=== PATIENT | female | born 1955 | race Caucasian/White ===

== ENCOUNTER 2024-03-15 10:57 | Outpatient (AMB) | payer MEDICARE, SELFPAY ==
--- OUTSIDE RECORDS SUMMARY | 2024-03-15 10:59 | XMS_ITS | Continuity of Care Document ---
Author Organization [facility] Brayan lt Address [address] [place] [address]- Care Team Providers Care Wire Fence Builder Name Role Phone Aleksandr Estrada MD Primary Care Physician [phone] [place] [facility] [place] Date(s): 05/11/20 - 06/10/20 [facility] Adult [address] [place] [address]- [facility] Attending Physician: Heather Figueroa Admitting Physician: Heather Figueroa Referring Physician: AdmHeather martin Allergies, Adverse Reactions, Alerts Substance Reaction Severity Status morphine Active Immunizations Given and Recorded Vaccine Date Status Refusal Reason influenza virus vaccine, inactivated 1 07/19/17 Gi josette influenza virus vaccine, inactivated 2 08/03/15 Re corded influenza virus vaccine, inactivated 3 07/09/12 Gi josette tetanus/diphtheria/pertussis, acel(Tdap) 12/17/15 Given pneumococcal 23-valent vaccine 4 07/09/12 Given Not Given Vaccine Date Status Refusal Reason Influenza Virus Vaccine (oldterm) 08/09/19 Not Giv en Patient Refuses 1Admin Note: Work 2Result Comment: [12/17/2015] at work at [employer] 3Early/Late Reason: Other: 4Early/Late Reason: Other: Medications amLODIPine 5 mg oral tablet 5 mg, 1, tablet, By Mouth, Daily, # 30 tablet, Refills 11, Tot. Refills 11, Maintenance, 08/09/19 11:29:04 EST, Route to Pharmacy Electronically, [id number], [facility]/pharmacy #[id number] Start Date: 08/09/19 Status: Ordered aspirin 81 mg oral enteric coated tablet By Mouth, Daily, 0 Refills, EC Tablet Start Date: 07/09/12 Status: Ordered buPROPion 300 mg/24 hours (XL) oral tablet, extended release TAKE 1 TABLET BY MOUTH EVERY DAY DIRECTED Start Date: 08/09/19 Status: Ordered Centrum Silver By Mouth, Daily, 0 Refills, Maintenance, 12/25/17 14:41:40 Start Date: 12/25/17 Status: Ordered clindamycin 1% topical gel 1 application, Topically, Daily at bedtime, apply a thin film to affected area after washing, # 30 Gm, 11 Refills, Maintenance, 08/09/19 11:29:55 EST, Gel, 1 application Topically Daily at bedtime,Instr:apply a thin film to affected area after washing Start Date: 08/09/19 Status: Ordered Donut foam pillow Donut foam pillow, See Instructions, # 1 each, Refills 0, Tot. Refills 0, Maintenance, DX: Coccyx pain M53.3, 12/27/18 15:10:50 EDT, Compound Start Date: 12/27/18 Status: Ordered methylphenidate 54 mg oral tablet, extended release TAKE 1 TABLET BY MOUTH EVERY DAY IN THE MORNING Start Date: 05/01/20 Status: Ordered Vitamin D3 By Mouth, 0 Refills, Maintenance, 12/25/17 14:41:25 Start Date: 12/25/17 Status: Ordered Problem List Condition Effective Dates Status Health Status Inform ant Arthritis of carpometacarpal (CMC) joints of both thumbs(Confirmed) Active Attention deficit disorder(Confirmed) Active Obesity (BMI 30-39.9)(Confirmed) Active GERD (gastroesophageal reflu x disease)(Confirmed) Active Anxiety, generalized(Confirmed) Active Long-term use of amphetamines(Confirmed) Active Headache(Confirmed) Active Hypertension(Confirmed) Active Major depressive disorder, r ecurrent episode, moderate(Confirmed) Active Acne rosacea(Confirmed) Active Social History Social History Type Response Smoking Status Former smoker entered on: 08/03/18 Sex
--- OUTSIDE RECORDS SUMMARY | 2024-03-15 10:59 | XMS_ITS | Continuity of Care Document ---
Author Organization [facility] Brayan lt Address [address] [place] [address]- Care Team Providers Care Life Enrichment Specialist Name Role Phone Sean SCOTT, Aleksandr Rivera Primary Care Physician [place] [facility] [place] 05[place]/20 [facility] Adult [address] [place] [address]- [facility] Allergies, Adverse Reactions, Alerts Substance Reaction Severity [...] Work 2Result Comment: [12/17/2015] at work at [employer] 3Early/Late Reason: Other: 4Early/Late Reason: Other: Medications amLODIPine 5 mg oral tablet 5 mg, 1, tablet, By Mouth, Daily, # 30 tablet, Refills 11, Tot. Refills 11, Maintenance, 08/09/19 11:29:04 EST, Route to Pharmacy Electronically, [id number], [facility]/pharmacy #[id number] Start Date: 08/09/19 Status: Ordered aspirin [...]
--- OUTSIDE RECORDS SUMMARY | 2024-03-15 10:59 | XMS_ITS | Continuity of Care Document ---
Author Organization [facility] Brayan Address [address] [place] [address]- Care Team Providers Care Resident Services Coordinator Name Role Phone Emi Gray Primary Care Physician Encounter [facility] Date(s): 04/23/23 - 05/23/23 [facility] Adult [address] [place] [address]- Allergies, Adverse Reactions, Alerts Substance Reaction Severity Status morphine Active Immunizations Given and Recorded Vaccine Date Status Refusal Reason influenza virus vaccine, inactivated 1 07/19/17 Gi josette influenza virus vaccine, inactivated 2 08/03/15 Re corded influenza virus vaccine, inactivated 3 07/09/12 Gi josette tetanus/diphtheria/pertussis, acel(Tdap) 12/17/15 Given pneumococcal 23-valent vaccine 4 07/09/12 Given 1Admin Note: Work 2Result Comment: [12/17/2015] at work at [employer] 3Early/Late Reason: Other: 4Early/Late Reason: Other: Medications amLODIPine 5 mg oral tablet 5 mg, 1, tablet, By Mouth, Daily, # 30 tablet, Refills 11, Tot. Refills 11, Maintenance, 08/09/19 11:29:04 EST, Route to Pharmacy Electronically, [id number], [facility]/pharmacy #[id number] Start Date: 08/09/19 Status: Ordered aspirin [...] after washing Start Date: 08/09/19 Status: Ordered Clonidine 0 Refills, Maintenance, 09/11/22 20:49:00 EST, Partial fill upon patient request if the prescription is for a schedule II opioid drug. Start Date: 09/11/22 Status: Ordered Donut foam pillow Donut foam pillow, See Instructions, # 1 each, Refills 0, Tot. Refills 0, Maintenance, DX: Coccyx pain M53.3, 12/27/18 15:10:50 EDT, Compound Start Date: 12/27/18 Status: Ordered famotidine 20 mg oral tablet 20 mg, 1, tablet, By Mouth, Daily, # 60 tablet, Refills 0, Maintenance, 09/11/22 20:49:00 EST, Partial fill upon patient request if the prescription is for a schedule II opioid drug. Start Date: 09/11/22 Status: Ordered methylphenidate 54 mg oral tablet, extended release TAKE 1 TABLET BY MOUTH EVERY DAY IN THE MORNING Start Date: 05/01/20 Status: Ordered Vitamin D3 By Mouth, 0 Refills, Maintenance, 12/25/17 14:41:25 Start Date: 12/25/17 Status: Ordered Problem List Condition Confirmation Course Effective Dates Status H ealth Status Informant Arthritis of carpometacarpal (CMC) joints of both thumbs Confirmed Active Attention deficit disorder Confirmed Active Obesity (BMI 30-39.9) Confirmed Active GERD (gastroesophageal reflux disease) Confirmed Active Anxiety, generalized Confirmed Active Long-term use of amphetamines Confirmed Active Headache Confirmed Active Hypertension Confirmed Active Obese class II Confirmed Active Major depressive disorder, recurrent episode, moderate Confirmed Active Acne rosacea Confirmed Active Social History Social History Type Response Smoking Status Former smoker entered on: 08/03/18 Sex Patient Care team information Care Team Personnel Name: Emi Gray Position: S PCO Associate Professional Member Role: PCP Address: Address: [address] [place] [address]- Care Team Related Persons Name: PHAN STANTON Name: MARU STANTON Address: home [address] [place] [address] Name: ROGERIO STANTON
--- OUTSIDE RECORDS SUMMARY | 2024-03-15 10:59 | XMS_ITS | Continuity of Care Document ---
Author Organization [facility] Brayan lt Address [address] [place] [address]- Care Team Providers Care Drilling Field Professional Name Role Phone Aleksandr Estrada MD Primary Care Physician Encounter [facility] [place] Date(s): 05/01/20 - 05/08/20 [facility] Adult [address] [place] [address]- [facility] Encounter Diagnosis Vertigo(Discharge Diagnosis) - 05/01/20 Major depressive disorder, recurrent episode, moderate(Discharge Diagnosis) - 05/01/20 Attending Physician: Not on Staff, Attending MD Allergies, Adverse Reactions, Alerts Substance Reaction Severity [...] Work 2Result Comment: [12/17/2015] at work at [employer] 3Early/Late Reason: Other: 4Early/Late Reason: Other: Medications amLODIPine 5 mg oral tablet 5 mg, 1, tablet, By Mouth, Daily, # 30 tablet, Refills 11, Tot. Refills 11, Maintenance, 08/09/19 11:29:04 EST, Route to Pharmacy Electronically, [id number], [facility]/pharmacy #[id number] Start Date: 08/09/19 Status: [...] EDT, Compound Start Date: 12/27/18 Status: Ordered meclizine 12.5 mg oral tablet 1 tablet = 12.5 mg, By Mouth, 3 times a day, PRN for dizziness, # 30 tablet, 0 Refills, Acute 05/15/20 14:26:00 EDT, 05/01/20 14:25:00 EDT, Tablet, [facility]/pharmacy #[id number], 161, cm, 05/01/20 13:52:00 EDT,Height Start Date: 05/01/20 Stop Date: 05/15/20 Status: Ordered methylphenidate 54 mg oral tablet, [...] ecurrent episode, moderate(Confirmed) Active Acne rosacea(Confirmed) Active Diagnosis Diagnosis Type Effective Dates Health Status Clinical Service Informant Vertigo Discharge Diagnosis 05/01/20 Major depressive disorder, recurrent episode, moderate Discharge Diagnosis 05/01/20 Vital Signs Most recent to oldest [Reference Range]: 1 Height 161.0 cm (05/01/20 1:52 PM) Weight 95.6 kg (05/01/20 1:52 PM) Oxygen Saturation [94-100 %] 98 % (05/01/20 1:52 PM) Pulse Rate [55-90 bpm] 100 bpm *H* (05/01/20 1:52 PM) Body Mass Index [18.5-24.99] 36.88 *>HHI* (05/01/20 1:52 PM) Blood Pressure [90-138/55-84 mm Hg] 130/ 60mm Hg (05/01/20 1:52 PM) Respiratory Rate [16-30 br/min] 20 br/mi n (05/01/20 1:52 PM) Temperature [96.8-100.4 DegF] 98.2 DegF (05/01/20 1:52 PM) Mode of Delivery (Oxygen) Room air (05/01/20 1:52 PM) Blood pressure sites Arm, right (05/01/20 1:52 PM) Temperature Route Oral (05/01/20 1:52 PM) Weight Obtained Via Standing scale (05/01/20 1:52 PM) Social History Social History Type Response Smoking Status Former smoker entered on: 08/03/18 Sex
--- OUTSIDE RECORDS SUMMARY | 2024-03-15 10:59 | XMS_ITS | Continuity of Care Document ---
Author Organization [facility] Brayan Address [address] [place] [address]- Care Team Providers Care Welder/Fitter Name Role Phone Sean SCOTT, Aleksandr Rivera Primary Care Physician Encounter [facility] Date(s): 09/18/21 - 10/18/21 [facility] Adult [address] [place] [address]- Allergies, Adverse Reactions, Alerts Substance Reaction Severity [...] Work 2Result Comment: [12/17/2015] at work at [employer] 3Early/Late Reason: Other: 4Early/Late Reason: Other: Medications amLODIPine 5 mg oral tablet 5 mg, 1, tablet, By Mouth, Daily, # 30 tablet, Refills 11, Tot. Refills 11, Maintenance, 08/09/19 11:29:04 EST, Route to Pharmacy Electronically, [id number], [facility]/pharmacy #[id number] Start Date: 08/09/19 Status: [...]
--- OUTSIDE RECORDS SUMMARY | 2024-03-15 10:59 | XMS_ITS | Continuity of Care Document ---
Author Organization [facility] Brayan Address [address] [place] [address]- Care Team Providers Care Hotel Yardperson Name Role Phone Aleksandr Estrada MD Primary Care Physician Encounter [facility] [place] Date(s): 12/30/19 - 01/09/20 [facility] Adult [address] [place] [address]- [facility] Attending Physician: Heather Figueroa Admitting Physician: Heather Figueroa Referring Physician: Heather Figueroa Allergies, Adverse Reactions, Alerts Substance Reaction Severity [...] Work 2Result Comment: [12/17/2015] at work at [employer] 3Early/Late Reason: Other: 4Early/Late Reason: Other: Medications amLODIPine 5 mg oral tablet 5 mg, 1, tablet, By Mouth, Daily, # 30 tablet, Refills 11, Tot. Refills 11, Maintenance, 08/09/19 11:29:04 EST, Route to Pharmacy Electronically, [id number], [facility]/pharmacy #[id number] Start Date: 08/09/19 Status: Ordered aspirin [...] after washing Start Date: 08/09/19 Status: Ordered Concerta 36 mg oral tablet, extended release TAKE 1 TABLET BY MOUTH EVERY DAY IN THE MORNING Start Date: 08/09/19 Status: Ordered Donut foam pillow Donut foam pillow, See Instructions, # 1 each, Refills 0, Tot. Refills 0, Maintenance, DX: Coccyx pain M53.3, 12/27/18 15:10:50 EDT, Compound Start Date: 12/27/18 Status: Ordered valacyclovir 1 gm oral tablet 1 tablet = 1 Gm, By Mouth, 3 times a day, for 14 days, # 42 tablet, 0 Refills, Acute 01/13/20 10:22:00 EDT, 12/30/19 10:22:00 EDT, Tablet, [facility]/pharmacy #[id number], 161, cm, 08/09/19 11:03:00 EST, Height Start Date: 12/30/19 Stop Date: 01/13/20 Status: Ordered Vitamin D3 By Mouth, 0 [...]
--- OUTSIDE RECORDS SUMMARY | 2024-03-15 10:59 | XMS_ITS | Continuity of Care Document ---
Author Organization [facility] Brayan lt Address [address] [place] [address]- Care Team Providers Care Punchboard Filling Machine Operator Name Role Phone Sean SCOTT, Aleksandr Rivera Primary Care Physician [place] [facility] [place]s): 05/15/20 - 06/14/20 [facility] Adult [address] [place] [address]- [facility] Allergies, Adverse Reactions, Alerts Substance Reaction [...] Work 2Result Comment: [12/17/2015] at work at [employer] 3Early/Late Reason: Other: 4Early/Late Reason: Other: Medications amLODIPine 5 mg oral tablet 5 mg, 1, tablet, By Mouth, Daily, # 30 tablet, Refills 11, Tot. Refills 11, Maintenance, 08/09/19 11:29:04 EST, Route to Pharmacy Electronically, [id number], [facility]/pharmacy #[id number] Start Date: 08/09/19 Status: Ordered [...]
--- OUTSIDE RECORDS SUMMARY | 2024-03-15 10:59 | XMS_ITS | Continuity of Care Document ---
Author Organization [facility] Brayan lt Address [address] [place] [address]- Care Team Providers Care Cuff Matcher Name Role Phone Aleksandr Estrada MD Primary Care Physician Encounter [facility] [place] Date(s): 05/11/20 - 05/18/20 [facility] Adult [address] [place] [address]- [facility] Encounter Diagnosis Vertigo(Discharge Diagnosis) - 05/11/20 Attending Physician: Yared GAS BURNER OPERATORKatiana Allergies, Adverse Reactions, Alerts Substance Reaction Severity [...] Work 2Result Comment: [12/17/2015] at work at [employer] 3Early/Late Reason: Other: 4Early/Late Reason: Other: Medications amLODIPine 5 mg oral tablet 5 mg, 1, tablet, By Mouth, Daily, # 30 tablet, Refills 11, Tot. Refills 11, Maintenance, 08/09/19 11:29:04 EST, Route to Pharmacy Electronically, [id number], [facility]/pharmacy #0373 Start Date: 08/09/19 Status: Ordered aspirin [...] Diagnosis Diagnosis Type Effective Dates Health Status Clini mainor Service Informant Vertigo Discharge Diagnosis 05/11/20 Vital Signs Most recent to oldest [Reference Range]: 1 Height 161.0 cm (05/11/20 7:13 AM) Social History Social History Type Response Smoking Status Former smoker entered on: 08/03/18 Sex
--- OUTSIDE RECORDS SUMMARY | 2024-03-15 10:59 | XMS_ITS | Continuity of Care Document ---
Author Organization [facility] Brayan Address [address] [place] [address]- Care Team Providers Care Technical Training Specialist Name Role Phone Aleksandr Estrada MD Primary Care Physician [place] [facility] [place] 12/30/19 - 01/06/20 [facility] Adult [address] [place] [address]- [facility] Encounter Diagnosis Varicella zoster(Discharge Diagnosis) - 12/30/19 Attending Physician: Aleksandr Estrada MD Allergies, Adverse Reactions, Alerts Substance Reaction [...] Work 2Result Comment: [12/17/2015] at work at [employer] 3Early/Late Reason: Other: 4Early/Late Reason: Other: Medications amLODIPine 5 mg oral tablet 5 mg, 1, tablet, By Mouth, Daily, # 30 tablet, Refills 11, Tot. Refills 11, Maintenance, 08/09/19 11:29:04 EST, Route to Pharmacy Electronically, [id number], [facility]/pharmacy #[id number] Start Date: 08/09/19 Status: Ordered [...] 01/13/20 10:22:00 EDT, 12/30/19 10:22:00 EDT, Tablet, [facility]/pharmacy #[id number], 161, cm, 08/09/19 11:03:00 EST, Height [...] Diagnosis Diagnosis Type Effective Dates Health Status Cl inical Service Informant Varicella zoster Discharge Diagnosis 12/30/19 Social History Social History Type Response Smoking Status Former smoker entered on: 08/03/18 Sex
--- NOTE | 2024-03-15 11:01 | AM.OFFWIN_ITS ---
Intake Vital Signs 03/15/24 11:02 Height 5 ft 2 in Weight 220 lb BMI 40.2 BP 120/70 Blood Pressure Location Lt brachial Position Sitting Pulse 91 Pulse Source Pulse Oximeter Temp 97.6 F Temp Source Temporal Artery Scan Pulse Oximetry (%) 96 Oxygen Delivery Method Room Air Intake Visit Reasons: DISABILITY SPECIALIST ?shingles Intake Note: pt is here today for shingles started 2 days ago Patient Tobacco Use Status: Never used Tobacco Allergies morphine [MORPHINE] Allergy (Unknown, Unverified 03/15/24 11:04) shakes violently Do you need a note to return to daycare/school/sports/work: No HPI HPI Comments History of Present Illness Details This is a 69-year-old female with a past medical history of hypertension, depression and anxiety presenting for evaluation of a shingles outbreak. The patient does state however that she has had episodes of chest pain that resolved with aspirin, her last episode of chest pain was on Thursday. Patient states that she started having a burning sensation on the left side of her face yesterday that extends to her scalp. Patient states that she has had shingles before and this feels similar. Patient has not taken any medication for treatment of this burning sensation. Patient denies having any chest pain or shortness for breath at this time. Patient states that she does not have a primary care provider of record at this time and is waiting for an intake at [facility]. [facility] Social History Patient Tobacco Use Status: Never used Tobacco Review of Systems Const All systems reviewed & are unremarkable except as noted in HPI and below Eyes Reports no additional complaints ENT Details: Burning sensation left side of face Reports no additional complaints Card Reports chest pain (not currently), Denies diaphoresis, Denies syncope and Denies dyspnea Resp Reports no additional complaints, Denies cough and Denies dyspnea GI Reports no additional complaints, Denies nausea and Denies vomiting Musc Reports no additional complaints Skin/Breast Reports system reviewed and no additional complaints, except as documented Neuro Reports no additional complaints and Denies syncope Psych Reports anxiety, Reports depression, Denies homicidal ideation and Denies suicidal ideation Endo Reports no additional complaints Physical Exam Vital Signs: Last Vital Signs Temp 97.6 F 03/15/24 11:02 Pulse 91 03/15/24 11:02 BP 120/70 03/15/24 11:02 Pulse Ox 96 03/15/24 11:02 Oxygen Delivery Method Room Air 03/15/24 11:02 BMI result Body Mass Index 40.2 Const General: cooperative, comfortable, no acute distress, alert, awake and anxious; No diaphoretic Nutritional Appearance: overweight Orientation/consciousness: patient oriented x3 Limitations: no limitations HEENT Head: Yes normal to inspection and Yes normocephalic Ears: hearing grossly normal bilaterally, external ears normal and TM's normal bilaterally General nose exam: Normal external nose present Eyes Other: No conjunctival lesions are noted bilaterally General: appearance normal, both eyes and all related structures Visual [place]: normal visual [place] by confrontation Alignment and Position: alignment normal Eyelids: Yes eyelids normal Conjunctivae: conjunctivae normal Sclerae: sclerae normal Corneas: corneas normal Resp Auscultation: clear to auscultation bilaterally, no wheezes and lung sounds not diminished Cardio Rate: regular rate Rhythm: regular rhythm Heart sounds: no murmurs and no rubs Skin Lesions: lesion noted (grouped erythematous papules on the left side of face/scalp in dermatomal) papule left face Wounds: no wounds Neuro General: patient oriented x3 Psych Appearance: grossly normal Mental Status: mental status grossly normal Insight: Good insight present (Psych) Judgement: Good judgement present (Psych) Assessment & Plan Assessment & Plan (1) Herpes zoster: Code(s): B02.9 - Zoster without complications Qualifiers: Herpes zoster complications: without complications Qualified Code(s): B02.9 - Zoster without complications Plan: Valtrex 1 g t.i.d. times 10 days; ibuprofen p.r.n. discomfort. (2) History of chest pain: Comment: Patient denies having any chest pain at this time. Reviewed history of chest pain that is relieved with aspirin. EKG deferred. Code(s): Z87.898 - Personal history of other specified conditions Plan: Patient advised to go to the emergency department immediately for further cardiac evaluation and management. Medications: New valacyclovir (Valtrex) 1,000 mg PO TID 30 tabs 0RF Coding Level of Care Code New Pt Level 3 (48231) Diagnoses Herpes zoster without complication B02.9 Herpes zoster complications: without complications History of chest pain Z87.898 Time Spent (min) 20
[2024-03-15 11:02] VITALS: BP 120/70; PULSE 91; TEMP 36.4; O2SAT 96; BMI 40.2
== END 2024-03-15 12:04 | disposition home or self-care (01) ==
PROVIDERS: PCP Family Medicine; Visit Provider Physician Assistant
DX: B02.9 Zoster without complications (principal); Z87.898 Personal history of other specified conditions
CPT/HCPCS: 99203

== ENCOUNTER 2024-04-04 08:30 | Outpatient (AMB) | payer MEDICARE, SELFPAY ==
[2024-04-04 08:56] VITALS: BP 130/70; PULSE 89; TEMP 36.7; O2SAT 97; BMI 40.2
--- NOTE | 2024-04-04 08:56 | AM.OFFWIN_ITS ---
Intake Vital Signs 04/04/24 08:56 Height 5 ft 2 in Weight 220 lb BMI 40.2 BP 130/70 Blood Pressure Location Rt brachial Position Sitting Pulse 89 Pulse Source Pulse Oximeter Temp 98.0 F Temp Source Oral Pulse Oximetry (%) 97 Oxygen Delivery Method Room Air Intake Visit Reasons: EP ?UTI Intake Note: pt is here for possible uti Patient Tobacco Use Status: Never used Tobacco Allergies morphine [MORPHINE] Allergy (Unknown, Verified 04/04/24 08:57) shakes violently Do you need a note to return to daycare/school/sports/work: No HPI HPI Comments History of Present Illness Details Patient is a 69-year-old female complaining of a couple of days of increased urgency frequency but states when she goes to urinate just a little bit comes out. She denies burning with urination, fevers or history of kidney stones or blood in her urine [facility] Social History Patient Tobacco Use Status: Never used Tobacco Review of Systems Const All systems reviewed & are unremarkable except as noted in HPI and below Physical Exam Vital Signs: Last Vital Signs Temp 98.0 F 04/04/24 08:56 Pulse 89 04/04/24 08:56 BP 130/70 04/04/24 08:56 Pulse Ox 97 04/04/24 08:56 Oxygen Delivery Method Room Air 04/04/24 08:56 BMI result Body Mass Index 40.2 Const General: cooperative, healthy appearing, comfortable, no acute distress and well developed Orientation/consciousness: patient oriented x3 Limitations: no limitations HEENT Head: Yes normal to inspection Eyes General: appearance normal, both eyes and all related structures Neck Neck: Yes normal visual inspection and Yes full ROM Resp Effort & Inspection: normal respiratory effort and able to speak in complete sentences General: Yes bladder normal to palpation and Yes no CVA tenderness Bimanual exam- vagina & uterus: bladder normal to palpation Back/Spine/Pelvis Back: no CVA tenderness Skin General skin exam: no rashes or lesions noted Neuro General: patient oriented x3 Extrem General: Yes normal to inspection Assessment & Plan Assessment & Plan (1) Urinary tract infection: Code(s): N39.0 - Urinary tract infection, site not specified Qualifiers: Urinary tract infection type: acute cystitis Hematuria presence: without hematuria Qualified Code(s): N30.00 - Acute cystitis without hematuria Plan: sent rx to pharmacy Plan see above Medications: New cefuroxime axetil 500 mg PO Q12H 10 tabs 0RF Coding Level of Care Code New Pt Level 3 (38133) Diagnoses Acute cystitis without hematuria N30.00 Urinary tract infection type: acute cystitis Hematuria presence: without hematuria
== END 2024-04-04 09:31 | disposition home or self-care (01) ==
PROVIDERS: PCP Family Medicine; Visit Provider Physician Assistant
DX: N30.00 Acute cystitis without hematuria (principal)
CPT/HCPCS: 81003; 99203

== ENCOUNTER 2025-01-25 08:39 | Outpatient (REF) | payer OTHER, SELFPAY ==
--- OUTSIDE RECORDS SUMMARY | 2025-01-25 11:50 | XMS_ITS | Clinical Summary ---
Author Organization [facility] [address] [facility] Address [address] [facility] [place] [address] Phone Care Team Providers Care Industrial Painter Name Role Phone Mara Dallas MD Primary Care Provider [phone] Allergies Active Allergy Reactions Criticality Noted Date [...] CKD (chronic kidney disease) , stage III ([facility] V24, [facility] V28) 11/04/2020 Asymptomatic varicose veins of both lower extrem ities 10/08/2020 Obesity (BMI 30-39.9) 10/08/2020 Decreased GFR 10/08/2020 Hypertension 07/16/2020 Attention deficit disorder 07/16/2020 Anxiety disorder 07/16/2020 Encounters Date Type Department Care Team Description 11/18/2024 7:30 AM EST Office Visit Adult Medicine [address] [phone] Mara Dallas MD Primary hypertension (Primary Dx); Recurrent major depressive disorder, in full remission ([facility] V24); Stage 3a chronic kidney disease ([facility] V24, [facility] V28); Prediabetes; Posterior vitreous degeneration, right from [...] 1:00 PM EDT Office Visit Adult Medicine [address] [phone] Mara Dallas MD [address] [place] [address] 03/24/2025 3:00 PM EDT Office Visit Adult Medicine [address] [phone] Mara Dallas MD [address] [place] [address] Health Maintenance Due Date Last Done Comments [...] mmol/L LAB CHEMISTRY METHOD 10/13/2024 4:40 PM [facility] Potassium 4.4 3.5 - 5.5 mmol/L LAB CHEMISTRY METHOD 10/13/2024 4:40 PM [facility] Chloride 107 96 - 110 mmol/L LAB CHEMISTRY METHOD 10/13/2024 4:40 PM [facility] CO2 27 21 - 32 mmol/L LAB CHEMISTRY METHOD 10/13/2024 4:40 PM [facility] Anion Gap 4 3 - 11 LAB CHEMISTRY METHOD 10/13/2024 4:40 PM [facility] Glucose 109(H) 70 - 100 mg/dL LAB CHEMISTRY METHOD 10/13/2024 4:40 PM [facility] BUN 17 5 - 25 mg/dL LAB CHEMISTRY METHOD 10/13/2024 4:40 PM [facility] Creatinine 1.19(H) 0.50 - 1.10 mg/dL LAB CHEMISTRY METHOD 10/13/2024 4:40 PM [facility] eGFR 50(L) >=60 mL/min/1. 73m2 LAB CHEMISTRY METHOD 10/13/2024 4:40 PM [facility] Comment:Calculation based on the??Chronic Kidney Disease Epidemiology Collaboration (CKD-EPI) equation refit??without adjustment for race. BUN/Creatinine Ratio 14.3 LAB CHEMISTRY METHOD 10/13/2024 4:40 PM [facility] Calcium 9.4 8.5 - 10.5 mg/dL LAB CHEMISTRY METHOD 10/13/2024 4:40 PM [facility] Blood Venous blood specimen / Unknown Venipuncture / Unknown 10/13/2024 3:49 PM EST 10/13/2024 4:15 PM EST Loki B Alfred SCOTT LAB BLOOD ORDERABLES Final Resu lt [facility] ([facility] [address] [place] [address], * (ABNORMAL) Lipid panel (06/09/2024) LDL/HDL Ratio [...] - [place] [employer] Care Teams Industrial Painter Relationship Specialty Start Date End Date Mara Dallas MD [address] [place] [phone] PCP - General Internal Medicine 10/12/24
== END 2025-01-25 08:40 | disposition home or self-care (01) ==
LOC: HO.LNP 08:39
PROVIDERS: PCP Family Medicine; Visit Provider Physician Assistant
DX: N30.00 Acute cystitis without hematuria (principal)
CPT/HCPCS: 81003; 87086

== ENCOUNTER 2025-01-25 08:39 | Outpatient (AMB) | payer OTHER, SELFPAY ==
--- NOTE | 2025-01-25 08:39 | AM.OFFWIN_ITS ---
Intake Vital Signs 01/25/25 08:47 Weight 221 lb BP 124/78 Blood Pressure Location Lt brachial Position Sitting Pulse 90 Pulse Source Pulse Oximeter Temp 98.2 F Temp Source Oral Pulse Oximetry (%) 98 Oxygen Delivery Method Room Air Intake Visit Reasons: EP Bladder infection? Intake Note: Patient here for lower back pain and burning sensation that has been present for a couple of weeks. Patient Tobacco Use Status: Never used Tobacco Allergies morphine [MORPHINE] Allergy (Unknown, Verified 01/25/25 08:47) shakes violently HPI HPI Comments History of Present Illness Details Patient is a 69yo F who presents to the office with concern of a bladder infection Admits to back pain and dysuria She states backache was a few weeks ago and resolved States symptoms started again yesterday + dysuria, frequency or urgency She noticed hematuria slightly on toilet paper last night. + constipation, last BM was Thursday. Sh joellen is still having flatulence Hx of 4 c-sections, appendectomy and cholecystectomy + chills without documented fever Took tylenol 4am; last dose She admits to abdominal pressure and sharp pains intermittently PFSH Social History Patient Tobacco Use Status: Never used Tobacco Review of Systems Const Reports chills and Denies fever(s) Card Denies chest pain Resp Denies cough GI Reports abdominal pain, Reports change in stool character, Reports constipation, Denies diarrhea, Denies nausea and Denies vomiting Reports hematuria (on toilet paper last night), Reports difficulty voiding, Reports dysuria, Denies urinary incontinence, Reports urinary hesitancy and Reports urinary urgency Musc Reports back pain (previously but none currently; last episode 3 weeks ago) Skin/Breast Denies rash Physical Exam Vital Signs: Last Vital Signs Temp 98.2 F 01/25/25 08:47 Pulse 90 01/25/25 08:47 BP 124/78 01/25/25 08:47 Pulse Ox 98 01/25/25 08:47 Oxygen Delivery Method Room Air 01/25/25 08:47 General: Non-toxic, NAD. Speaking full sentences. Skin: Warm dry throughout Eye: EOMI Respiratory: CTA bilaterally. No wheezes, rales or rhonchi Cardiac: RRR. No murmur ABdominal: BS present x 4. No rebound or guarding. Minimal umbillical ttp. No CVAT bilaterally. MSK: Full ROM extremities. Neurology: Alert. No aphasia or facial droop. Gait without abnormality Psych: Good mood and affect Assessment & Plan Assessment & Plan (1) Urinary tract infection: Code(s): N39.0 - Urinary tract infection, site not specified Qualifiers: Urinary tract infection type: acute cystitis Hematuria presence: without hematuria Qualified Code(s): N30.00 - Acute cystitis without hematuria Plan: Patient seen and evaluated. U/A: + leukos. Negative nitrates culture sent Keflex with food Miralax OTC for constipation; discussed staying hydrated with medicine Patient gave verbal understanding and had no additional questions or concerns at time of discharge All questions answered Orders: Orders Urine Culture Today N30.00 - Acute cystitis without hematuria Medications: New cephalexin 500 mg PO BID 14 caps 0RF Coding Level of Care Code Est Pt Level 3 (46371) Diagnoses Acute cystitis without hematuria N30.00 Urinary tract infection type: acute cystitis Hematuria presence: without hematuria
[2025-01-25 08:47] VITALS: BP 124/78; PULSE 90; TEMP 36.8; O2SAT 98
--- OUTSIDE RECORDS SUMMARY | 2025-01-25 09:03 | XMS_ITS | Clinical Summary ---
Author Organization [facility] [address] [facility] Address [address] [facility] [place] [address] Phone Care Team Providers Care Hand Twister Name Role Phone Mara Dallas MD Primary Care Provider [phone] Allergies Active Allergy Reactions Criticality Noted Date Comments Morphine 07/16/2020 seizures Medications cholecalciferol (VITAMIN D-3) 250 mcg (10,000 unit) capsule Take by mouth. Active magnesium gluconate (MAGONATE) 27.5 mg magne- sium (500 mg) tablet Take 1 tablet (27.5 mg total) by mouth 1 (one) time each day. Active famotidine (PEPCID) 20 mg tablet TAKE 1 TABLET BY MOUTH TWICE A DAY 180 tablet 1 10/04/2024 Active cloNIDine (CATAPRES) 0.1 mg tablet TAKE 1 TABLET BY MOUTH TWICE A DAY 180 tablet 1 10/04/2024 Active buPROPion XL (WELLBUTRIN XL) 300 mg 24 hr tablet Take 1 tablet (300 mg total) by mouth 1 (one) time each day in the morning. 90 tablet 1 10/06/2024 Active amLODIPine (NORVASC) 10 mg tablet Take 1 tablet (10 mg total) by mouth 1 (one) time each day. 90 each 1 11/18/2024 08/13/202 5 Active Active Problems Problem Noted Date Diagnosed Date Posterior vitreous degeneration, right 5 Prediabetes 11/18/2024 Depression 06/08/2024 CKD (chronic kidney disease) , stage III ([facility] V24, [facility] V28) 11/04/2020 Asymptomatic varicose veins of both lower extrem ities 10/08/2020 Obesity (BMI 30-39.9) 10/08/2020 Decreased GFR 10/08/2020 Hypertension 07/16/2020 Attention deficit disorder 07/16/2020 Anxiety disorder 07/16/2020 Encounters Date Type Department Care Team Description 11/18/2024 7:30 AM EST Office Visit Adult Medicine [address] [phone] Mara Dallas MD Primary hypertension (Primary Dx); Recurrent major depressive disorder, in full remission ([facility] V24); Stage 3a chronic kidney disease ([facility] V24, [facility] V28); Prediabetes; Posterior vitreous degeneration, right from Last 3 Months Immunizations Name Administration Dates Next Due Influenza trivalent, 0.5mL (Fluad) 65yo and olde r 06/08/2024 Influenza trivalent, 0.5mL ( Fluzone High-dose) 65yo and older 06/08/2024 Pneumococcal polysaccharide 23 valent (Pneumovax 23) 2yo and older 07/09/2012 Tdap Tetanus diptheria acell ular pertussis (Boostrix; Adacel) 7yo and older 12/17/2015 Surgical History Surgery Date Site/Laterality Comments APPENDECTOMY PROCEDURE: HISTORICAL APPENDECTOMY TONSILLECTOMY PROCEDURE: HISTORICAL TONSILLECTOMY CHOLECYSTECTOMY PROCEDURE: HISTORICAL CHOLECYSTECTOMY OTHER SURGICAL HISTORY PROCEDURE: ---- OTHER ----; COMMENT: c section x4 BUNIONECTOMY Right PROCEDURE: BUNION SURGERY, SIMPLE REMOVAL Medical History Medical History Date Comments Essential (primary) hypertension DX:Essential (primary) hypertension Anxiety disorder DX:Anxiety diso rder Depression DX:Depression Family History Medical History Relation Name Comments COPD Brother tobacco No Known Problems Father Diabetes Mother Heart failure Mother Cervical cancer Paternal Grandmother COPD Sister 1 Hypertension Sister 2 Hypertension Sister 3 No Known Problems Son 1 Asthma Son 2 No Known Problems Son 3 No Known Problems Son 4 Relation Name Status Comments Brother Daughter Father Mother Paternal Grandmother Sister 1 Alive Sister 2 Alive Sister 3 Alive Son 1 Alive Son 2 Alive Son 3 Alive Son 4 Alive Social History Tobacco Use Types Packs/Day Years Used Date Smoking Tobacco: Former Cigarettes Q uit: 07/16/2003 Smokeless Tobacco: Never Tobacco Cessation:Counseling Given: Not Answered Alcohol Use Standard Drinks/Week Comments Yes 0 (1 standard drink = 0.6 oz pur e alcohol) Comments No Sex and Gender Information Value Date Recorded Sex Assigned at Female 09/21/2024 11:24 AM EST Legal Sex Female 2:17 AM EST Gender Identity Not on file Sexual Orientation Not on file Obstetrics History Last Filed Vital Signs Vital Sign Reading Time Taken Comments Blood Pressure 144/72 11/18/2024 7:26 AM EST Pulse 81 10/14/2024 7:47 AM EST Temperature 36.4 ??C (97.5 ??F) 11/18/2024 7:26 AM ES T Respiratory Rate 14 11/18/2024 7:26 AM EST Oxygen Saturation 97% 10/14/2024 7:47 AM EST Inhaled Oxygen Concentration - - Weight 103 kg (228 lb) 11/18/2024 7:26 AM EST Height 157.5 cm (5' 2 ) 11/18/2024 7:26 AM EST Body Mass Index 41.7 11/18/2024 7:26 AM EST Plan of Treatment Upcoming Encounters Date Type Department Care Team (Late st Contact Info) Description 02/16/2025 1:00 PM EDT Office Visit Adult Medicine [address] [phone] Mara Dallas MD [address] [place] [address] 03/24/2025 3:00 PM EDT Office Visit Adult Medicine [address] [phone] Mara Dallas MD [address] [place] [address] Health Maintenance Due Date Last Done Comments Breast Cancer Screening 1955 Zoster Vaccines (1 of 2) 2007 Pneumococcal Vaccine: 50+ Years (2 of 2 - PCV) 07/09/2013 07/09/2012 RSV Immunization Adult Patients (1 - Risk 60-74 years 1-dose series) 2017 Colorectal Cancer Screening: Colonoscopy 05/03/2024 Depression Screening 05/03/2024 Falls Risk Assessment 05/03/2024 Hepatitis C Screening 05/03/2024 Medicare Annual Wellness Visit 05/03/2024 Osteoporosis Screening (Bone Density Screening) 05/03/2024 Social Influencers of Health Screening 05/03/2024 COVID-19 Vaccine ( season) 2024 04/28/2022, 10/06/2021, 01/22/2021, Additional history exists Hypertension/CHF/CAD Annual BMP Blood Test 10/13/2025 10/13/2024, 06/09/2024, 06/09/2024 DTaP,Tdap,and Td Vaccines (2 - Td or Tdap) 12/16/2025 12/17/2015 Cholesterol Screening (Lipid Panel) 06/09/2029 06/09/2024, 06/09/2024 Influenza Vaccine Completed 06/08/2024, , 07/13/2017 HIB Vaccines Aged Out No longer eligi ble based on patient's age to complete this topic HPV Vaccines Aged Out No longer eligi ble based on patient's age to complete this topic Hepatitis A Vaccines Aged Out No long er eligible based on patient's age to complete this topic Hepatitis B Vaccines Aged Out No long er eligible based on patient's age to complete this topic IPV Vaccines Aged Out No longer eligi ble based on patient's age to complete this topic MMR Vaccines Aged Out No longer eligi ble based on patient's age to complete this topic Meningococcal ACWY Vaccine Aged Out N o longer eligible based on patient's age to complete this topic Meningococcal B Vaccine Aged Out No l onger eligible based on patient's age to complete this topic RSV Immunization Patients Under 20 months Aged Out No longer eligible based on patient's age to complete this topic Varicella Vaccines Aged Out No longer eligible based on patient's age to complete this topic Procedures Procedure Name Priority Date/Time Associated Diagnosis Comments BASIC METABOLIC PANEL STAT 10/13/2024 3:49 PM EST LIPID PANEL Routine 06/09/2024 from Last 3 Months or Most Recently Relevant to Health Maintenance Results * (ABNORMAL) Basic metabolic panel (10/13/2024 3:49 PM EST) Sodium 138 133 - 145 mmol/L LAB CHEMISTRY METHOD 10/13/2024 4:40 PM [facility] Potassium 4.4 3.5 - 5.5 mmol/L LAB CHEMISTRY METHOD 10/13/2024 4:40 PM [facility] Chloride 107 96 - 110 mmol/L LAB CHEMISTRY METHOD 10/13/2024 4:40 PM [facility] CO2 27 21 - 32 mmol/L LAB CHEMISTRY METHOD 10/13/2024 4:40 PM [facility] Anion Gap 4 3 - 11 LAB CHEMISTRY METHOD 10/13/2024 4:40 PM [facility] Glucose 109(H) 70 - 100 mg/dL LAB CHEMISTRY METHOD 10/13/2024 4:40 PM [facility] BUN 17 5 - 25 mg/dL LAB CHEMISTRY METHOD 10/13/2024 4:40 PM [facility] Creatinine 1.19(H) 0.50 - 1.10 mg/dL LAB CHEMISTRY METHOD 10/13/2024 4:40 PM [facility] eGFR 50(L) >=60 mL/min/1. 73m2 LAB CHEMISTRY METHOD 10/13/2024 4:40 PM [facility] Comment:Calculation based on the??Chronic Kidney Disease Epidemiology Collaboration (CKD-EPI) equation refit??without adjustment for race. BUN/Creatinine Ratio 14.3 LAB CHEMISTRY METHOD 10/13/2024 4:40 PM [facility] Calcium 9.4 8.5 - 10.5 mg/dL LAB CHEMISTRY METHOD 10/13/2024 4:40 PM [facility] Blood Venous blood specimen / Unknown Venipuncture / Unknown 10/13/2024 3:49 PM EST 10/13/2024 4:15 PM EST Loki B Alfred SCOTT LAB BLOOD ORDERABLES Final Resu lt [facility] [address] [place] [address], * (ABNORMAL) Lipid panel (06/09/2024) LDL/HDL Ratio 4 0 - 4 Triglycerides 91 0 - 150 mg/dL Cholesterol 187 0 - 200 mg/dL HDL 54 >=40 mg/dL LDL Cholesterol 115(A) 0 - 100 mg/dL Blood Venous blood specimen / Unknown Historical Provider LAB BLOOD ORDERABLES Li l Result from Last 3 Months or Most Recently Relevant to Health Maintenance Insurance [place] [employer] Care Teams Hand Twister Relationship Specialty Start Date End Date Mara Dallas MD [address] [place] [id number] PCP - General Internal Medicine 10/12/24
== END 2025-01-25 09:24 | disposition home or self-care (01) ==
PROVIDERS: PCP Family Medicine; Visit Provider Physician Assistant
DX: N30.00 Acute cystitis without hematuria (principal); Z13.9 Encounter for screening, unspecified

== ENCOUNTER 2025-03-13 10:14 | Outpatient (AMB) | payer OTHER, MEDICAID, SELFPAY ==
--- NOTE | 2025-03-13 10:19 | AM.OFFWIN_ITS ---
Intake Vital Signs 03/13/25 10:29 Height 5 ft 2 in Weight 227 lb BMI 41.5 BP 134/68 Blood Pressure Location Lt brachial Position Sitting Pulse 86 Pulse Source Pulse Oximeter Temp 98.2 F Temp Source Oral Pulse Oximetry (%) 95 Oxygen Delivery Method Room Air Intake Visit Reasons: EP-lt eye swollen/itchy Intake Note: . Pt has itchy swollen Lt eye: ? due to shingles x2days ago: Eye test exam OD 20/20, OS 20/50, OU 20/25 corrective lens Patient Tobacco Use Status: Never used Tobacco Ag Equipment Field Service Technician Required: No Allergies morphine [MORPHINE] Allergy (Unknown, Verified 03/13/25 10:31) shakes violently HPI HPI Comments History of Present Illness Details History of Present Illness - The patient is a 70-year-old female pr esenting with an itchy, irritated eye. - Symptoms began the previous morning, i ncluding itchy eyelids but no internal ocular involvement. - The patient has experienced previous e pisodes of Herpes Zoster involving the periorbital area, approximately five times, with initial involvement occurring on her back at age 13. - Currently, no blisters are present, th ough this onset is typical for her condition. - She reports the application of cool co mpresses alleviates some itching, and she is avoiding scratching to prevent potential blistering. - The patient denied any associated feve r or objective signs of a cold and has utilized Visine for symptom relief in the past, seeking further treatment specifically for itching management. - She denies fever or chills. She denies ULLOA, visual changes, discharge, crusting, redness to the eye, cold symptoms, ULLOA, dizziness, CP, SOB, abd pain, n/v/d. Physical Exam General: Cooperative, healthy appearing, comfortable, no acute distress and well developed Orientation: Patient oriented x3 Head: Normal to inspection Ears: Hearing grossly normal bilaterally Nose: Normal external nose present Eyes: slight redness noted around the left eye on the upper and lower eyelid, no tearing or crusting, no signs of pink eye Neck: Normal visual inspection and Yes full ROM Respiratory: Normal respiratory effort and able to speak in complete sentences. Clear to auscultation bilaterally Cardiovascular: Regular rate and rhythm. Normal S1 and S2 Skin: No rashes or lesions noted on the face. Patient was informed and verbally consented to the use of an ambient scribe for clinic note documentation during this visit. [facility] Social History Patient Tobacco Use Status: Never used Tobacco Review of Systems Const All systems reviewed & are unremarkable except as noted in HPI and below Physical Exam Vital Signs: Last Vital Signs Temp 98.2 F 03/13/25 10:29 Pulse 86 03/13/25 10:29 BP 134/68 03/13/25 10:29 Pulse Ox 95 03/13/25 10:29 Oxygen Delivery Method Room Air 03/13/25 10:29 BMI result Body Mass Index 41.5 Assessment & Plan Assessment & Plan (1) Itch of eye, left: Code(s): H57.9 - Unspecified disorder of eye and adnexa Plan Most likely allergies vs conjunctivitis vs allergic reaction vs herpes zoster Plan - Prescribe Valacyclovir for a seven-day course to address potential Herpes Zoster Ophthalmicus recurrence. - Prescribe eye drops to manage itching and prevent worsened symptoms due to scratching. - Advise the continuation of applying cool compresses; emphasize avoiding scratching. - Monitor symptom progression and consider follow-up for worsening or changes. Medications: New olopatadine 0.7% (Pataday Once Daily Relief) 1 drp ophthalmic (eye) Q24H PRN 5 mL 0RF itching valacyclovir 1,000 mg PO q12h 7 days 14 tabs 0RF Coding Level of Care Code Est Pt Level 3 (46397) Diagnoses Itch of eye, left H57.9
[2025-03-13 10:29] VITALS: BP 134/68; PULSE 86; TEMP 36.8; O2SAT 95; BMI 41.5
--- OUTSIDE RECORDS SUMMARY | 2025-03-13 11:22 | XMS_ITS | Clinical Summary ---
Author Organization [facility] [address] [facility] Address [address] [facility] [place] [address] Phone Care Team Providers Care Relay Associate Name Role Phone Mara Dallas MD Primary Care Provider [phone] Allergies Active Allergy Reactions Criticality Noted Date Comments Morphine 07/16/2020 seizures Medications cholecalciferol (VITAMIN D-3) 250 mcg (10,000 unit) capsule Take by mouth. A ctive magnesium gluconate (MAGONATE) 27.5 mg magne- sium (500 mg) tablet Take 1 tablet (27.5 mg total) by mouth 1 (one) time each day. Active famotidine (PEPCID) 20 mg tablet TAKE 1 TABLET BY MOUTH TWICE A DAY 180 tablet 1 4 Active cloNIDine (CATAPRES) 0.1 mg tablet TAKE 1 TABLET BY MOUTH TWICE A DAY 180 tablet 1 4 Active buPROPion XL (WELLBUTRIN XL) 300 mg 24 hr tablet Take 1 tablet (300 mg total) by mouth 1 (one) time each day in the morning. 90 tablet 1 5 Active amLODIPine (NORVASC) 10 mg tablet Take 1 tablet (10 mg total) by mouth 1 (one) time each day. 90 each 1 02/14/05/17/20 25 Active diclofenac (VOLTAREN) 1 % topical gel Apply 2 g topically 2 (two) times a day. 200 g 5 Active Active Problems Problem Noted Date Diagnosed Date Posterior vitreous degeneration, right 5 Prediabetes 11/18/2024 Depression 06/08/2024 CKD (chronic kidney disease) , stage III ([facility] V24, [facility] V28) 11/04/2020 Asymptomatic varicose veins of both lower extrem ities 10/08/2020 Obesity (BMI 30-39.9) 10/08/2020 Decreased GFR 10/08/2020 Hypertension 07/16/2020 Attention deficit disorder 07/16/2020 Anxiety disorder 07/16/2020 Encounters Date Type Department Care Team Description 02/20/2025 Telephone Adult [address] [phone] Elisha Bal MA Call back 02/16/2025 1:26 PM EDT - 02/16/2025 11:59 PM EDT Hospital Encounter [address] [phone] Pain of right heel Discharge Disposition: Home or Self Care 02/16/2025 1:00 PM EDT Office Visit Adult [address] [phone] Mara Dallas MD Pain of right heel (Primary Dx); Varicose veins of both lower extremities with pain; Screening for malignant neoplasm of skin; Calcaneal spur of right foot from Last 3 Months Immunizations Name Administration [...] Sex Female 2:17 AM EST Gender Identity Female 02/20/2025 9:49 AM EDT Sexual Orientation Straight 02/20/2025 9: 49 AM EDT Obstetrics History Last Filed Vital Signs Vital Sign Reading Time Taken Comments Blood Pressure 132/62 02/16/2025 1:01 PM EDT Pulse 76 02/16/2025 1:01 PM EDT Temperature 36.4 ??C (97.5 ??F) 02/16/2025 1:01 PM ED T Respiratory Rate 14 02/16/2025 1:01 PM EDT Oxygen Saturation 98% 02/16/2025 1:01 PM EDT Inhaled Oxygen Concentration - - Weight 102 kg (224 lb) 02/16/2025 1:01 PM EDT Height 154.9 cm (5' 1 ) 02/16/2025 1:01 PM EDT Body Mass Index 42.32 02/16/2025 1:01 PM EDT Plan of Treatment Upcoming Encounters Date Type Department Care Team (Late st Contact Info) Description 03/24/2025 3:00 PM EDT Office Visit Adult Medicine [address] [place] [address] Mara Dallas MD [address] [place] [address] 05/11/2025 9:15 AM EDT Office Visit Orthopedic Surgery - [place] [address] [phone] [place], DPLoki [address] [address] Health Maintenance Due Date Last Done Comments Breast Cancer Screening 1955 Zoster Vaccines (1 of 2) 2007 Pneumococcal Vaccine: 50+ Years (2 of 2 - PCV) 07/09/2013 07/09/2012 RSV Immunization Adult Patients (1 - Risk 60-74 years 1-dose series) 2017 Colorectal Cancer Screening: Colonoscopy 05/03/2024 Falls Risk Assessment 05/03/2024 Hepatitis C Screening 05/03/2024 Medicare Annual Wellness Visit 05/03/2024 Osteoporosis Screening (Bone Density Screening) 05/03/2024 Social Influencers of Health Screening 05/03/2024 COVID-19 Vaccine ( season) 2024 04/28/2022, 10/06/2021, 01/22/2021, Additional history exists Hypertension/CHF/CAD Annual BMP Blood Test 10/13/2025 10/13/2024, 06/09/2024, 06/09/2024 DTaP,Tdap,and Td Vaccines (2 - Td or Tdap) 12/16/2025 12/17/2015 Depression Screening 02/09/2026 02/09/2025 Cholesterol Screening (Lipid Panel) 06/09/2029 06/09/2024, 06/09/2024 [...] Procedure Name Priority Date/Time Associated Diagnosis Comments XR FOOT 3+ VIEWS RIGHT Routine 02/16/2025 1:41 PM EDT Pain of right heel BASIC METABOLIC PANEL STAT 10/13/2024 3:49 PM EST LIPID PANEL Routine 06/09/2024 from Last 3 Months or Most Recently Relevant to Health Maintenance Results * XR Foot 3+ Views Right (02/16/2025 1:41 PM EDT) Anatomical Region Laterality Modality Lower Extremities, Foot Right [facility] 02/16/2025 7:33 PM EDT Impressions 02/16/2025 7:37 PM EDT No acute fracture or dislocation of the right foot. Small calcaneal spur. -------- FINAL REPORT -------- Dictated By: Bharat Jose Dictated Date: 02/16/2025 19:33 ET Assigned Physician: Bharat Jose Reviewed and Electronically Signed By: Bharat Jose Signed Date: 02/16/2025 19:37 ET Workstation ID: [id number] Transcribed By: Self Edit Transcribed Date: 02/16/2025 19:33 ET Narrative 02/16/2025 7:37 PM EDT HISTORY: Right heel pain evaluate bone spur TECHNIQUE: 3 views radiographs of the right foot COMPARISON: None FINDINGS: ?? The foot demonstrates normal mineralization with no fracture or malalignment. ??The visualized articulations are normal. ??Orthopedic hardware is present within the 1st metatarsal. ??Small calcaneal spur. ??No significant soft tissue swelling is identified. Procedure Note Bharat Jose MD - 02/16/2025 HISTORY: Right heel pain evaluate bone spur TECHNIQUE: 3 views radiographs of the right foot COMPARISON: None FINDINGS: The foot demonstrates normal mineralization with no fracture ormalalignment. The visualized articulations are normal. Orthopedichardware is present within the 1st metatarsal. Small calcaneal spur. Nosignificant soft tissue swelling is identified. IMPRESSION: No acute fracture or dislocation of the right foot. Small calcaneal spur. -------- FINAL REPORT -------- Dictated By: Bharat Jose Dictated Date: 02/16/2025 19:33 ET Assigned Physician: Bharat Jose Reviewed and Electronically Signed By: Bharat Jose Signed Date: 02/16/2025 19:37 ET Workstation ID: [id number] Transcribed By: Self Edit Transcribed Date: 02/16/2025 19:33 ET us Mara Dallas MD IMG XR PROCEDURES Final Result * (ABNORMAL) Basic metabolic panel (10/13/2024 3:49 PM EST) Sodium 138 133 - 145 mmol/L LAB CHEMISTRY METHOD 10/13/2024 4:40 PM [facility] Potassium 4.4 3.5 - 5.5 mmol/L LAB CHEMISTRY METHOD 10/13/2024 4:[address] [facility] Chloride 107 96 - 110 mmol/L LAB CHEMISTRY METHOD 10/13/2024 4:40 PM [facility] CO2 27 21 - 32 mmol/L LAB CHEMISTRY METHOD 10/13/2024 4:40 PM [facility] Anion Gap 4 3 - 11 LAB CHEMISTRY METHOD 10/13/2024 4:40 PM [facility] Glucose 109(H) 70 - 100 mg/dL LAB CHEMISTRY METHOD 10/13/2024 4:[address] [facility] BUN 17 5 - 25 mg/dL LAB CHEMISTRY METHOD 10/13/2024 4:40 PM [facility] Creatinine 1.19(H) 0.50 - 1.10 mg/dL LAB CHEMISTRY METHOD 10/13/2024 4:40 PM [facility] eGFR 50(L) >=60 mL/min/1. 73m2 LAB CHEMISTRY METHOD 10/13/2024 4:40 PM [facility] Comment:Calculation based on the??Chronic Kidney Disease Epidemiology Collaboration (CKD-EPI) equation refit??without adjustment for race. BUN/Creatinine Ratio 14.3 LAB CHEMISTRY METHOD 10/13/2024 4:40 PM [facility] Calcium 9.4 8.5 - 10.5 mg/dL LAB CHEMISTRY METHOD 10/13/2024 4:40 PM [facility] Blood Venous blood specimen / Unknown Venipuncture / Unknown 10/13/2024 3:49 PM EST 10/13/2024 4:15 PM EST Loki Simon MD LAB BLOOD ORDERABLES Final Resu lt [facility] [address] [place] [address], * (ABNORMAL) Lipid panel (06/09/2024) LDL/HDL Ratio 4 0 - 4 Triglycerides 91 0 - 150 mg/dL Cholesterol 187 0 - 200 mg/dL HDL 54 >=40 mg/dL LDL Cholesterol 115(A) 0 - 100 mg/dL Blood Venous blood specimen / Unknown us Julien Sanchez MD LAB BLOOD ORDERABLES Li l Result from Last 3 Months or Most Recently Relevant to Health Maintenance Insurance MEDICA[place] [employer] [employer] Care Teams Relay Associate Relationship Specialty Start Date End Date Mara Dallas MD [address] [place] [address] [phone] PCP - General Internal Medicine 10/12/24
== END 2025-03-13 11:32 | disposition home or self-care (01) ==
PROVIDERS: PCP Family Medicine; Visit Provider Physician Assistant Medical
DX: H57.9 Unspecified disorder of eye and adnexa (principal)

== ENCOUNTER → 2025-03-13 10:14 | Outpatient (BNVA) | payer OTHER, MEDICAID, SELFPAY | PROVIDERS: PCP Family Medicine; Visit Provider Physician Assistant Medical | DX: Z13.89 Encounter for screening for other disorder (principal) ==

== ENCOUNTER 2025-05-22 14:14 | Outpatient (REF) | payer OTHER, MEDICAID, SELFPAY ==
[2025-05-22 17:21] LABS: Resp Syncy Virus RNA Qual PCR NEGATIVE (Negative); SARS COV2 PCR INHOUSE NEGATIVE (Negative)
== END 2025-05-22 14:15 | disposition home or self-care (01) ==
LOC: HO.LNP 14:14
PROVIDERS: PCP Internal Medicine; Visit Provider Physician Assistant Medical
DX: H92.02 Otalgia, left ear (principal); J02.9 Acute pharyngitis, unspecified; R09.89 Other specified symptoms and signs involving the circulatory and respiratory systems
CPT/HCPCS: 87637

== ENCOUNTER 2025-05-22 14:14 | Outpatient (AMB) | payer OTHER, MEDICAID, SELFPAY ==
[2025-05-22 14:45] VITALS: BP 138/72; PULSE 80; TEMP 36.7; O2SAT 97; BMI 41.9
--- NOTE | 2025-05-22 14:45 | MHC.OFFWIV ---
Intake Vital Signs 05/22/25 14:45 Height 5 ft 2 in Weight 229 lb BMI 41.9 BP 138/72 Blood Pressure Location Rt brachial Position Sitting Pulse 80 Pulse Source Pulse Oximeter Temp 98.0 F Temp Source Oral Pulse Oximetry (%) 97 Oxygen Delivery Method Room Air Intake Visit Reasons: EP-?ears & throat infection Patient Tobacco Use Status: Never used Tobacco [employer] Required: No Is last menstrual period known: No Post menopausal: Yes Patient : No Allergies morphine (MORPHINE) Allergy (Unknown, Verified 05/22/25 14:52) shakes violently Do you need a note to return to daycare/school/sports/work: No HPI HPI Comments History of Present Illness Details History - The patient is a 70-year-old female presenting with ear pain and possible ear or throat infection. - The left ear pain began around Thursday, with associated gland discomfort. - Reports headache without fever, and cough without runny nose or congestion. - No history of swimming or water exposure, and no ear discharge noted. - Uses Tylenol for pain and Ricola for cough relief, with no history of asthma or COPD, but family history of COPD. - She has been eating and drinking well at home. - She denies fever, chills, CP, SOB, abd pain, n/v/d. Physical Exam General: Cooperative, healthy appearing, comfortable and no acute distress Orientation/consciousness: Patient oriented x3 Limitations: No limitations Head: Normal to inspection Ears: Hearing grossly normal bilaterally, external ears normal and TM's normal bilaterally Nose: Normal external nose present, normal nares present, and no nasal discharge present. Face and sinus: Sinuses nontender to palpation. Mouth: Normal oral and palatal mucosa present and moist mucous membranes noted. Throat: Tonsils normal. Uvula is midline. Posterior oropharynx with slight erythema and no exudates. Eyes: Appearance normal, both eyes and all related structures Neck: Normal visual inspection, full ROM. Lymphadenopathy noted. Respiratory: Clear to auscultation bilaterally. Normal respiratory effort, able to speak in complete sentences. No respiratory distress, not tachypneic, no tripod positioning and no use of accessory muscles. Cardiovascular: Regular rate and rhythm. Normal S1 and S2 Skin: No rashes or lesions noted Patient was informed and verbally consented to the use of an ambient scribe for clinic note documentation during this visit [facility] Social History Patient Tobacco Use Status: Never used Tobacco Patient : No Review of Systems Const All systems reviewed & are unremarkable except as noted in HPI and below Physical Exam Vital Signs: Last Vital Signs Temp 98.0 F 05/22/25 14:45 Pulse 80 05/22/25 14:45 BP 138/72 05/22/25 14:45 Pulse Ox 97 05/22/25 14:45 Oxygen Delivery Method Room Air 05/22/25 14:45 BMI result Body Mass Index 41.9 Assessment & Plan Assessment & Plan (1) Ear pain: Code(s): H92.09 - Otalgia, unspecified ear Qualifiers: Laterality: left Qualified Code(s): H92.02 - Otalgia, left ear (2) Sore throat: Code(s): J02.9 - Acute pharyngitis, unspecified Plan Most likely URI vs strep vs OM vs covid vs post nasal drip vs allergies Plan - COVID-19 test conducted due to respiratory symptoms and recent trends. - Prescribed cough medicine and an inhaler for symptom management. - Recommended home remedies like salt water gargles and lemon tea. - Continue using Tylenol for pain relief. - VSS, pt well appearing Orders: Orders AMB Rapid Strep Screen Today Z13.9 - Encounter for screening, unspecified SARS-CoV2/FLU/RSV Today R09.89 - Other specified symptoms and signs involving the circulatory and respiratory systems Medications: New benzonatate 100 mg PO bid-tid PRN 21 caps 0RF Cough 7 days albuterol sulfate 90 mcg/actuation 2 puffs inhalation Q6H PRN 8.5 grams 0RF shortness of breath or wheezing or cough Coding Level of Care Code Est Pt Level 3 (11418) Diagnoses Left ear pain H92.02 Laterality: left Sore throat J02.9
--- OUTSIDE RECORDS SUMMARY | 2025-05-22 15:00 | XMS_ITS | Clinical Summary ---
Author Organization [facility] [address] [facility] Address [address] [facility] [place] [address] Phone Care Team Providers Care [employer] Name Role Phone Mara Dallas MD Primary Care Provider [phone] Allergies Active Allergy Reactions Criticality Noted Date Comments Morphine 07/16/2020 seizures Medications cholecalcifero l (VITAMIN D-3) 250 mcg (10,000 unit) capsule Take by mouth. Active magnesium gluconate (MAGONATE) 27.5 mg magne- sium (500 mg) tablet Take 1 tablet (27.5 mg total) by mouth 1 (one) time each day. Active famotidine (PEPCID) 20 mg tablet TAKE 1 TABLET BY MOUTH TWICE A DAY 180 tablet 1 10/04/20 24 Active Pataday Once Daily Relief 0.7 % drops PLACE 1 DROP INTO THE EYE(S) EVERY 24 HOURS NEEDED FOR ITCHING 03/13/20 25 Active valACYclovir (VALTREX) 1 gram tablet Take 1 tablet (1,000 mg total) by mouth every 12 (twelve) hours. for 7 days 03/13/20 25 Active lisinopriL (PRINIVIL,ZEST RIL) 2.5 mg tablet Take 1 tablet (2.5 mg total) by mouth 1 (one) time each day. 90 each 03/24/20 25 025 Active cloNIDine (CATAPRES) 0.1 mg tablet Take 1 tablet (0.1 mg total) by mouth 1 (one) time each day. 03/24/20 25 Active buPROPion XL (WELLBUTRIN XL) 300 mg 24 hr tablet TAKE 1 TABLET BY MOUTH 1 TIME EACH DAY IN THE MORNING. 90 tablet 1 03/28/20 25 Active amLODIPine (NORVASC) 10 mg tablet TAKE 1 TABLET BY MOUTH 1 TIME EACH DAY. 90 tablet 1 05/16/20 25 Active diclofenac (VOLTAREN) 1 % topical gel APPLY 2 G TOPICALLY TWICE A DAY 200 g 2 05/16/20 25 Active amLODIPine (NORVASC) 10 mg tablet Take 1 tablet (10 mg total) by mouth 1 (one) time each day. 90 each 1 11/18/19 25 025 Discontinued diclofenac (VOLTAREN) 1 % topical gel Apply 2 g topically 2 (two) times a day. 200 g 02/17/20 25 025 Discontinued Active Problems Problem Noted Date Diagnosed Date Obesity, morbid ([facility] V24, [facility] V28) 03/24 Assessment & Plan (03/24/2025 3:35 PM EDT): Posterior vitreous degeneration, right Prediabetes 11/18/2024 Depression 06/08/2024 CKD (chronic kidney disease) , stage III ([facility] V24, [facility] V28) 11/04/2020 Asymptomatic varicose veins of both lower extrem ities 10/08/2020 Obesity (BMI 30-39.9) 10/08/2020 Decreased GFR 10/08/2020 Hypertension 07/16/2020 Assessment & Plan (03/24/2025 3:35 PM EDT): Hypertension-initial blood pressure elevated, patient reports that blood pressure has been high at home as well mainly in the evening time, only has been taking clonidine in the morning and by the evening time blood pressures high in the 160s to 170s, has been compliant with amlodipine 10 mg daily. Start lisinopril 2.5 mg daily, continue with amlodipine 10 mg daily. Continue with clonidine 0.1 mg daily. Attention deficit disorder 07/16/2020 Anxiety disorder 07/16/2020 Encounters Date Type Department Care Team Description 05/11/2025 9:15 AM EDT Office Visit Orthopedic Surgery - [address] [address] Otis Hatfield DPM Arthritis of both feet (Primary Dx); Plantar fasciitis; Pes planus of both feet; Calcaneal spur of right foot; Lumbosacral radiculopathy 04/18/[address] [phone] Mara Dallas MD Labs Only (Ultrasound) 03/24/2025 3:00 PM EDT Office Visit [address] [phone] Mara Dallas MD PE (physical exam), annual (Primary Dx); Special screening for malignant neoplasms, colon; Other specified disorders of bone density and structure, other site; Screening mammogram for breast cancer; Need for vaccination against Streptococcus pneumoniae; Obesity, morbid (CMS/HCC V24, CMS/HCC V28); Primary hypertension 02/20/[address] [phone] Elisha Bal MA Call back from Last 3 Months Immunizations Name Administration Dates Next Due Influenza Quadrivalent, 0.5m l, preservative free (Fluarix; FluLaval; Fluzone) ages 6mo and older (Afluria) 3yo and older 07/13/2017 Influenza trivalent, 0.5mL (Fluad) 65yo and olde r 06/08/2024 Influenza trivalent, 0.5mL ( Fluzone High-dose) 65yo and older 06/08/2024 Pneumococcal conjugate 20 va lent (Prevnar 20, PCV 20) 2mo and older 03/24/2025 Pneumococcal polysaccharide 23 valent (Pneumovax 23) 2yo and older 07/09/2012 Tdap Tetanus diptheria acell ular pertussis (Boostrix; Adacel) 7yo and older 12/17/2015 Surgical History Surgery Date Site/Laterality Comments APPENDECTOMY PROCEDURE: HISTORICAL APPENDECTOMY TONSILLECTOMY PROCEDURE: HISTORICAL TONSILLECTOMY CHOLECYSTECTOMY PROCEDURE: HISTORICAL CHOLECYSTECTOMY OTHER SURGICAL HISTORY PROCEDURE: ---- OTHER ----; COMMENT: c section x4 BUNIONECTOMY Right PROCEDURE: BUNION SURGERY, SIMPLE REMOVAL SECTION, LOW TRANSVERSE Medical History Medical History Date Comments Essential (primary) hypertension DX:Essential (primary) hypertension Anxiety disorder DX:Anxiety diso rder Depression DX:Depression ADHD (attention deficit hype ractivity disorder) Arthritis Family History Medical History Relation Name Comments COPD Brother Heath tobacco No Known Problems Father Diabetes Mother Lida Heart failure Mother Lida Kidney disease Mother Lida Cervical cancer Paternal Grandmother Isabelle Ovarian cancer Paternal Grandmother Isabelle COPD Sister 1 Preet Hypertension Sister 2 Ciarra Hypertension Sister 3 Jody No Known Problems Son 1 Asthma Son 2 Grady No Known Problems Son 3 No Known Problems Son 4 Relation Name Status Comments Brother Heath Daughter Father Mother Lida Paternal Grandmother Isabelle Sister 1 Preet Alive Sister 2 Ciarra Alive Sister 3 Jody Alive Son 1 Alive Son 2 Grady Alive Son 3 Alive Son 4 Alive Social History Tobacco Use Types Packs/Day Years Used Date Smoking Tobacco: Former Cigarettes Q uit: 07/16/2003 Smokeless Tobacco: Never Alcohol Use Standard Drinks/Week Comments Yes 0 (1 standard drink = 0.6 oz pur e alcohol) Housing Instability Answer Date Recorde d Are you worried that in the next 2 months you may not have stable housing? No 03/19/2025 Food Access & Nutrition Answer Date Rec orded Do you have access to a vari ety of food including fruits and vegetables? Yes 03/19/2025 Access to Healthcare Answer Date Record ed Within the last 3 months, ho w many times did you visit the emergency department for your medical care? 1 03/19/2025 Health Literacy Answer Date Recorded How often do you need to hav e someone help you when you read instructions, pamphlets, or other written material from your doctor or pharmacy? Never 03/19/2025 Caregiver: How often do you need to have someone help you when you read instructions, pamphlets, or other written material from your doctor or pharmacy? Not on file 03/19/2025 Financial Risk Answer Date Recorded How hard is it for you to pa y for the very basics like food, housing, medical care, and air conditioning / heating? Not very hard 03/19/2025 Transportation Answer Date Recorded Has the lack of transportati on kept you from meetings, work, or from getting things needed for daily living? No Has the lack of transportati on kept you from medical appointments or from getting medications? No 03/19/2025 Social Isolation Answer Date Recorded How often do you feel lonely or isolated from th ose around you? Never 03/19/2025 Food Risk Answer Date Recorded Within the past 12 months we worried whether our food would run out before we got money to buy more. Never true 03/19/2025 Within the past 12 months th e food we bought just didn't last and we didn't have money to get more. Never true 03/19/2025 Dependent Care Answer Date Recorded Do you need help finding or paying for care for your loved ones. For example, early childhood aide classroom or elderly care for an older adult? No 03/19/2025 Education Answer Date Recorded Do you think completing more education or training, like finishing a GED, going to college, or learning a trade, would be helpful for you? N/A 03/19/2025 Employment and Income Answer Date Recor ded During the last four weeks, have you been actively looking for work? Patient declined 03/19/2025 Living Situation Answer Date Recorded What is your living situation? 0 03/19/2025 Comments No Sex and Gender Information Value Date Recorded Sex Assigned at Female 09/21/2024 11:24 AM EST Legal Sex Female 2:17 AM EST Gender Identity Female 02/20/2025 9:49 AM EDT Sexual Orientation Straight 02/20/2025 9: 49 AM EDT Obstetrics History Last Filed Vital Signs Vital Sign Reading Time Taken Comments Blood Pressure 138/72 03/24/2025 3:26 PM EDT Pulse 78 03/24/2025 2:58 PM EDT Temperature 36.4 C (97.5 F) 03/24/2025 2:58 PM EDT Respiratory Rate 14 03/24/2025 2:58 PM EDT Oxygen Saturation 98% 02/16/2025 1:01 PM EDT Inhaled Oxygen Concentration - - Weight 106 kg (234 lb) 03/24/2025 2:58 PM EDT Height 157.5 cm (5' 2 ) 03/24/2025 2:58 PM EDT Body Mass Index 42.8 03/24/2025 2:58 PM EDT Plan of Treatment Upcoming Encounters Date Type Department Care Team (Late st Contact Info) Description 07/06/2025 1:00 PM EDT Office Visit Adult Medicine [facility] [address] [place] [address] Mara Dallas MD [address] [place] [id number] 07/13/2025 10:00 AM EDT Office Visit Orthopedic Surgery - [place] [id number] [phone] Otis Hatfield, DPLoki [address] [phone] Health Maintenance Due Date Last Done Comments Breast Cancer Screening 1955 Zoster Vaccines (1 of 2) 02/20/1976 RSV Immunization Adult Patients (1 - Risk 60-74 years 1-dose series) 2017 Falls Risk Assessment 05/03/2024 Hepatitis C Screening 05/03/2024 Medicare Annual Wellness Visit 05/03/2024 Osteoporosis Screening (Bone Density Screening) 05/03/2024 COVID-19 Vaccine ( season) 2024 04/28/2022, 10/06/2021, 01/22/2021, Additional history exists Influenza Vaccine (#1) 2025 , 06/08/2024, 07/13/2017 DTaP,Tdap,and Td Vaccines (2 - Td or Tdap) 12/16/2025 12/17/2015 Social Influencers of Health Screening 03/19/2026 03/19/2025 Hypertension/CHF/CAD Annual BMP Blood Test 03/22/2026 03/22/2025, 10/13/2024, 06/09/2024, Additional history exists Colorectal Cancer Screening: FIT-DNA (Cologuard) 04/11/2028 04/11/2025, 04/11/2025, 04/11/2025 Cholesterol Screening (Lipid Panel) 03/22/2030 03/22/2025, 06/09/2024, 06/09/2024 Depression Screening Completed 03/24/2025 Pneumococcal Vaccine: 50+ Years Completed 03/24/2025, 07/09/2012 HIB Vaccines Aged Out No longer eligi [...] Procedure Name Priority Date/Time Associated Diagnosis Comments LAB COLOGUARD COLON CANCER SCREEN Routine 04/11/2025 6:20 PM EDT Special screening for malignant neoplasms, colon CBC WITH AUTO DIFFERENTIAL Routine 03/22/2025 8:05 AM EDT Primary hypertension COMPREHENSIVE METABOLIC PANEL Routine 03/22/2025 8:05 AM EDT Primary hypertension CBC AND DIFFERENTIAL Routine 03/22/2025 8:05 AM EDT Primary hypertension LIPID PANEL WITH REFLEX TO DIRECT LDL Routine 03/22/2025 8:05 AM EDT Primary hypertension HEMOGLOBIN A1C Routine 03/22/2025 8:05 AM EDT Prediabetes from Last 3 Months Results * Cologuard?? colon cancer screening (04/11/2025 6:20 PM EDT) COLOGUARD Negative Negative [facility] Comment: The Cologuard (TM) test was performed on this specimen. NEGATIVE TEST RESULT. A negative Cologuard result indicates a low likelihood that a colorectal cancer (CRC) or advanced adenoma (adenomatous polyps with more advanced pre-malignant features) is present. The chance that a person with a negative Cologuard test has a colorectal cancer is less than 1 in 1500 (negative predictive value >99.9%) or has an advanced adenoma is less than 5.3% (negative predictive value 94.7%). These data are based on a prospective cross-sectional study of 10,000 individuals at average risk for colorectal cancer who were screened with both Cologuard and colonoscopy. (Pippa Ahmadi al, N Engl J Med 2014;370(14):1286- 1297) The normal value (reference range) for this assay is negative. COLOGUARD RE-SCREENING RECOMMENDATION: Periodic colorectal cancer screening is an important part of preventive healthcare for asymptomatic individuals at average risk for colorectal cancer. Following a negative Cologuard result, the [place] [employer] and U.S. Multi-Society Task Force screening guidelines recommend a Cologuard re-screening interval of 3 years. References: [place] [employer] Guideline for Colorectal Cancer Screening: https://www.cancer.org/cancer/tzbgm-jcbrll-adunqz/diknbxlji-rvpuvedan-btrfrhv/ac s-rec ommendations.html.; Mynor DK, Avni CR, Debora RiveraK, Colorectal Cancer Screening: Recommendations for Physicians and Patients from the U.S. Multi-Society Task Force on Colorectal Cancer Screening , Am J Gastroenterology 2017; 112:3237-6270. TEST DESCRIPTION: Composite algorithmic analysis of stool DNA-biomarkers with hemoglobin immunoassay. Quantitative values of individual biomarkers are not reportable and are not associated with individual biomarker result reference ranges. Cologuard is intended for colorectal cancer screening of adults of either sex, 45 years or older, who are at average-risk for colorectal cancer (CRC). Cologuard has been approved for use by the U.S. FDA. The performance of Cologuard was established in a cross sectional study of average-risk adults aged 50-84. Cologuard performance in patients ages 45 to 49 years was estimated by sub-group analysis of near-age groups. Colonoscopies performed for a positive result may find as the most clinically significant lesion: colorectal cancer [4.0%], advanced adenoma (including sessile serrated polyps greater than or equal to 1cm diameter) [20%] or non- advanced adenoma [31%]; or no colorectal neoplasia [45%]. These estimates are derived from a prospective cross-sectional screening study of 10,000 individuals at average risk for colorectal cancer who were screened with both Cologuard and colonoscopy. (Pippa Ahmadi al, N Engl J Med 2014;370(14):8563-9581.) Cologuard may produce a false negative or false positive result (no colorectal cancer or precancerous polyp present at colonoscopy follow up). A negative Cologuard test result does not guarantee the absence of CRC or advanced adenoma (pre-cancer). The current Cologuard screening interval is every 3 years. ([place] [employer] and U.S. Multi-Society Task Force). Cologuard performance data in a 10,000 patient pivotal study using colonoscopy as the reference method can be accessed at the following location: www.TrackIF/results. Additional description of the Cologuard test process, warnings and precautions can be found at www.[employer]. Stool 04/11/2025 6:20 PM EDT 04/13/2025 1:08 PM EDT Mara Dallas MD LAB MOLECULAR DIAGNOSTICS ORDERA BLES Final Result [employer] [address] [place] [address] [facility] [address] [place] [address] * (ABNORMAL) Lipid panel with reflex to direct LDL (03/22/2025 8:05 AM EDT) Cholesterol 178 0 - 200 mg/dL LAB CHEMISTRY METHOD 03/22/2025 10:34 AM EDT [facility] Triglycerides 74 0 - 150 mg/dL LAB CHEMISTRY METHOD 03/22/2025 10:34 AM EDT [facility] HDL 55 >=40 mg/dL LAB CHEMISTRY METHOD 03/22/2025 10:34 AM EDT [facility] LDL Calculated 108(H) 0 - 100 mg/dL LAB CHEMISTRY METHOD 03/22/2025 10:34 AM EDT [facility] VLDL Cholesterol Jhony 14.8 mg/dL LAB CHEMISTRY METHOD 03/22/2025 10:34 AM EDT [facility] Non HDL Chol. (LDL+VLDL) 123 <145 mg/dL LAB CHEMISTRY METHOD 03/22/2025 10:34 AM EDT [facility] Chol/HDL Ratio 3.2 0.0 - 4.4 LAB CHEMISTRY METHOD 03/22/2025 10:34 AM T [facility] Blood Venous blood specimen / Unknown Venipuncture / Unknown 03/22/2025 8:05 AM EDT 03/22/2025 8:05 AM EDT us Mara Dallas MD LAB BLOOD ORDERABLES Final Resul t [facility] [address] [place] [address], * (ABNORMAL) CBC auto differential (03/22/2025 8:05 AM EDT) WBC 9.8 4.8 - 10.8 K/mcL LAB HEMETOLOGY METHOD 03/22/2025 10:11 AM EDT [facility] RBC 4.10 3.80 - 4.80 M/mcL LAB HEMETOLOGY METHOD 03/22/2025 10:11 AM EDT [facility] Hemoglobin 12.1 11.5 - 16.0 g/dL LAB HEMETOLOGY METHOD 03/22/2025 10:11 AM T [facility] Hematocrit 38.0 35.0 - 47.0 % LAB HEMETOLOGY METHOD 03/22/2025 10:11 AM [facility] MCV 93.4 79.0 - 98.0 FL LAB HEMETOLOGY METHOD 03/22/2025 10:11 AM [facility] MCH 29.7 27.0 - 32.0 pcg LAB HEMETOLOGY METHOD 03/22/2025 10:11 AM [facility] MCHC 31.8(L) 32.0 - 37.0 g/dL LAB HEMETOLOGY METHOD 03/22/2025 10:11 AM [facility] RDW 13.4 11.0 - 15.0 % LAB HEMETOLOGY METHOD 03/22/2025 10:11 AM [facility] Platelets 345 130 - 400 K/mcL LAB HEMETOLOGY METHOD 03/22/2025 10:11 AM [facility] MPV 10.3 7.0 - 11.0 FL LAB HEMETOLOGY METHOD 03/22/2025 10:11 AM [facility] NRBC 0.0 <1.0 % LAB HEMETOLOGY METHOD 03/22/2025 10:11 AM [facility] NRBC Absolute 0.00 <0.10 K/mcL LAB HEMETOLOGY METHOD 03/22/2025 10:11 AM [facility] Neutrophils Relative 58.9 % LAB HEMETOLOGY METHOD 03/22/2025 10:11 AM [facility] Lymphocytes Relative 29.3 % LAB HEMETOLOGY METHOD 03/22/2025 10:11 AM [facility] Monocytes Relative 6.3 % LAB HEMETOLOGY METHOD 03/22/2025 10:11 AM [facility] Eosinophils Relative 4.0 % LAB HEMETOLOGY METHOD 03/22/2025 10:11 AM [facility] Basophils Relative 0.7 % LAB HEMETOLOGY METHOD 03/22/2025 10:11 AM EDT [facility] Immature Granulocytes Relative 0.8 % LAB HEMETOLOGY METHOD 03/22/2025 10:11 AM EDT [facility] Neutrophils Absolute 5.75 1.50 - 7.00 K/mcL LAB HEMETOLOGY METHOD 03/22/2025 10:11 AM EDT [facility] Lymphocytes Absolute 2.86 1.00 - 5.00 K/mcL LAB HEMETOLOGY METHOD 03/22/2025 10:11 AM EDT [facility] Monocytes Absolute 0.62 0.20 - 1.00 K/mcL LAB HEMETOLOGY METHOD 03/22/2025 10:11 AM EDT [facility] Eosinophils Absolute 0.39 0.00 - 0.50 K/mcL LAB HEMETOLOGY METHOD 03/22/2025 10:11 AM EDT [facility] Basophils Absolute 0.07 0.00 - 0.20 K/mcL LAB HEMETOLOGY METHOD 03/22/2025 10:11 AM EDT [facility] Immature Granulocytes Absolute 0.08(H) 0.00 - 0.03 K/mcL LAB HEMETOLOGY METHOD 03/22/2025 10:11 AM [facility] Blood Venous blood specimen / Unknown Venipuncture / Unknown 03/22/2025 8:05 AM EDT 03/22/2025 8:05 AM EDT us Mara Dallas MD LAB BLOOD ORDERABLES Final Resul t [facility] [address] [place] [address], * Hemoglobin A1c (03/22/2025 8:05 AM EDT) Hemoglobin A1C 5.7 <6.5 % LAB CHEMISTRY METHOD 03/22/2025 12:33 PM EDT [facility] Mean Bld Glu Estim. 117 mg/dL LAB CHEMISTRY METHOD 03/22/2025 12:33 PM [facility] Blood Venous blood specimen / Unknown Venipuncture / Unknown 03/22/2025 8:05 AM EDT 03/22/2025 8:05 AM EDT us Mara Dallas MD LAB BLOOD ORDERABLES Final Resul t [facility] [address] [place] [address], [place] [phone] * (ABNORMAL) Comprehensive metabolic panel (03/22/2025 8:05 AM EDT) Sodium 138 133 - 145 mmol/L LAB CHEMISTRY METHOD 03/22/2025 10:34 AM [facility] Potassium 4.4 3.5 - 5.5 mmol/L LAB CHEMISTRY METHOD 03/22/2025 10:34 AM [facility] Chloride 105 96 - 110 mmol/L LAB CHEMISTRY METHOD 03/22/2025 10:34 AM [facility] CO2 29 21 - 32 mmol/L LAB CHEMISTRY METHOD 03/22/2025 10:34 AM [facility] Anion Gap 4 3 - 11 LAB CHEMISTRY METHOD 03/22/2025 10:34 AM [facility] Glucose 104(H) 70 - 100 mg/dL LAB CHEMISTRY METHOD 03/22/2025 10:34 AM [facility] BUN 14 5 - 25 mg/dL LAB CHEMISTRY METHOD 03/22/2025 10:34 AM [facility] Creatinine 1.04 0.50 - 1.10 mg/dL LAB CHEMISTRY METHOD 03/22/2025 10:34 AM [facility] eGFR 59(L) >=60 mL/min/1. 73m2 LAB CHEMISTRY METHOD 03/22/2025 10:34 AM [facility] Comment:Calculation based on the Chronic Kidney Disease Epidemiology Collaboration (CKD-EPI) equation refit without adjustment for race. BUN/Creatinine Ratio 13.5 LAB CHEMISTRY METHOD 03/22/2025 10:34 AM [facility] Calcium 9.4 8.5 - 10.5 mg/dL LAB CHEMISTRY METHOD 03/22/2025 10:34 AM [facility] AST (SGOT) 15 10 - 42 unit/L LAB CHEMISTRY METHOD 03/22/2025 10:34 AM [facility] ALT (SGPT) 26 10 - 60 unit/L LAB CHEMISTRY METHOD 03/22/2025 10:34 AM [facility] Alkaline Phosphatase 70 42 - 121 unit/L LAB CHEMISTRY METHOD 03/22/2025 10:34 AM [facility] Total Protein 7.1 6.0 - 8.0 g/dL LAB CHEMISTRY METHOD 03/22/2025 10:34 AM [facility] Albumin 3.9 3.2 - 5.0 g/dL LAB CHEMISTRY METHOD 03/22/2025 10:34 AM [facility] Total Bilirubin 0.5 0.0 - 1.4 mg/dL LAB CHEMISTRY METHOD 03/22/2025 10:34 AM [facility] Blood Venous blood specimen / Unknown Venipuncture / Unknown 03/22/2025 8:05 AM EDT 03/22/2025 8:05 AM EDT us Mara Dallas MD LAB BLOOD ORDERABLES Final Resul t [facility] [address] [place] [address], from Last 3 Months Insurance MEDICAID - [place] MEDIC[place] ADVANTAGE [facility] Care Teams [employer] Relationship Specialty Start Date End Date Mara Dallas MD [address] [place] [phone] PCP - General Internal Medicine 10/12/24
--- OUTSIDE RECORDS SUMMARY | 2025-05-22 15:00 | XMS_ITS ---
Author Name [facility] Organization Unknown Care Team Organization Name Specialty Phone Email Start Date End mariia [facility] JENNIFFER REYNA Primary Care 05/18/2025
== END 2025-05-22 15:28 | disposition home or self-care (01) ==
PROVIDERS: PCP Internal Medicine; Visit Provider Physician Assistant Medical
DX: H92.02 Otalgia, left ear (principal); J02.9 Acute pharyngitis, unspecified

== ENCOUNTER 2025-07-10 08:19 | Outpatient (REF) | payer MEDICARE, MEDICAID, SELFPAY ==
--- OUTSIDE RECORDS SUMMARY | 2025-07-06 13:15 | XMS_ITS | Encounter Summary ---
Author Organization [facility] Address [address] [place] [address] Care Team Providers Care Marketing Services Coordinator Name Role Phone Mara Reyna MD Primary Care Provider [phone] Reason for Visit * Reason Comments Follow-up Encounter Details Date Type Department Care Team (Late st Contact Info) Description 07/06/2025 1:15 PM EDT Office Visit Adult Medicine [address] [phone] Mara Reyna MD [address] [place] [address] Primary hypertension (Primary Dx); Recurrent major depressive disorder, in full remission (CMS/HCC V24); Prediabetes; Primary osteoarthritis of right knee; Need for prophylactic vaccination and inoculation against influenza Social History Tobacco Use Types Packs/Day Years [...] care for your loved ones. For example, child and family therapist or elderly care for an older adult? [...] Date Recorded What is your living situation? Unrecognized valu e 03/19/2025 Comments No Sex and Gender Information Value Date Recorded Sex Assigned at Female 09/21/2024 11:24 AM EST Legal Sex Female 2:17 AM EST Gender Identity Female 02/20/2025 9:49 AM EDT Sexual Orientation Straight 02/20/2025 9: 49 AM EDT documented as of this encounter Last Filed Vital Signs Vital Sign Reading Time Taken Comments Blood Pressure 102/60 07/06/2025 1:05 PM EDT Pulse 70 07/06/2025 1:05 PM EDT Temperature 36.4 C (97.5 F) 07/06/2025 1:05 PM EDT Respiratory Rate 14 07/06/2025 1:05 PM EDT Oxygen Saturation 97% 07/06/2025 1:05 PM EDT Inhaled Oxygen Concentration - - Weight 105 kg (231 lb) 07/06/2025 1:05 PM EDT Height 154.9 cm (5' 1 ) 07/06/2025 1:05 PM EDT Body Mass Index 43.65 07/06/2025 1:05 PM EDT documented in this encounter Functional Status * Are you deaf or do you have serious difficulty hearing? Answer Date of Assessment Author No 10/14/2024 6:39 AM Anjali Mujica RN * Are you blind or do you have serious difficulty seeing, even when wearing glasses? Answer Date of Assessment Author No 10/14/2024 6:39 AM Anjali Mujica RN * Do you have serious difficulty walking or climbing stairs? Answer Date of Assessment Author No 10/14/2024 6:39 AM Anjali Mujica RN * Do you have serious difficulty dressing or bathing? Answer Date of Assessment Author No 10/14/2024 6:39 AM Anjali Mujica RN * Because of a physical, mental, or emotional condition, do you have serious difficulty doing errandsalone such as visiting the doctor? Answer Date of Assessment Author No 10/14/2024 6:39 AM Anjali Mujica RN documented as of this encounter Mental Status * Because of a physical, mental, or emotional condition, do you have serious difficulty concentrating, remembering, or making decisions? (5 years old or older) Answer Entry Date Author No 10/14/2024 6:39 AM Anjali Mujica RN documented in this encounter Ordered Prescriptions Prescription Sig Dispense Quantity Refills Last Filled Start Date End Date diclofenac (VOLTAREN) 1 % topical gel Apply 4 g topically 2 (two) times a day. 450 g 2 07/06/2025 documented in this encounter Progress Notes * Mara Reyna MD - 07/06/2025 1:15 PM EDTAddended by: MARA REYNA on: 07/06/2025 01:51 PM Modules accepted: Orders * Mara Reyna MD - 07/06/2025 1:15 PM EDT Images from the original note were not included. CHIEF COMPLAINT: Follow-up IDENTIFIER: Cassie Warren is a 70 y.o. old female. HPI: Patient is a 70-year-old female with hypertension, anxiety/depression, GERD, vitamin D deficiency who is here for follow-up visit. Anxiety/depression-symptoms well-controlled on bupropion 20 mg daily and clonidine 0.1 mg a day. Hypertension-on amlodipine 10 mg, lisinopril 2.5 mg. Patient reports that she started with right knee pain about 1 week, she states that next day she went on a day trip and walked a lot and the pain increased . She states that when she got back she hasrested the knee and taken tyenolw ith improvement. No fall so rinjuries. ROS: Review of systems: Pertinent items are noted in HPI PAST MEDICAL HISTORY: Patient Active Problem List Diagnosis Date Noted Obesity, morbid ([facility] V24, [facility] V28) 03/24/2025 Posterior vitreous degeneration, right 12/19/2024 Prediabetes 11/18/2024 Depression 06/08/2024 Asymptomatic varicose veins of both lower extremities 10/08/2020 Decreased GFR 10/08/2020 Hypertension 07/16/2020 Attention deficit disorder 07/16/2020 Anxiety disorder 07/16/2020 SOCIAL HISTORY: Social History Tobacco Use Smoking status: Former Current packs/day: 0.00 Types: Cigarettes Quit date: 07/16/2003 Years since quittin.9 Smokeless tobacco: Never Substance Use Topics Alcohol use: Yes FAMILY HISTORY: Family Status Relation Name Status Mother Lida Father Sister Preet Alive Brother Heath PGM Isabelle Sister Ciarra Alive Sister Jody Alive Son Alive Son Grady Alive Son Alive Son Alive Daughter No partnership data on file Family History[1] ACTIVE MEDICATIONS: Medications Taking[2] ALLERGIES: Morphine PHYSICAL EXAM: Blood pressure 102/60, pulse 70, temperature 36.4 ??C (97.5 ??F), temperature source Temporal, resp. rate 14, height 1.549 m (61 ), weight 105 kg (231 lb), SpO2 97%. Body mass index is 43.65 kg/m??. Plan is deferred until next visit APPEARANCE: Alert and in no acute distress EYES: PERRLA, conjunctiva and sclera normal HEART: RRR with normal S1 and S2, no murmurs, no gallops, no JVD appreciated LUNG: clear to auscultation bilaterally EXTREMITIES: Extremities warm and well perfused without clubbing, cyanosis, or edema NEURO: Awake, alert and oriented x 3 and Normal gait LABS: IMPRESSION: 1. Primary hypertension 2. Recurrent major depressive disorder, in full remission ([facility] V24) 3. Prediabetes 4. Primary osteoarthritis of right knee ASSESSMENT/PLAN: Cassie was seen today for follow-up. Diagnoses and all orders for this visit: Primary hypertension (Primary) - CBC and differential; Future - Comprehensive metabolic panel; Future - Lipid panel with reflex to direct LDL; Future Recurrent major depressive disorder, in full remission ([facility] V24) Prediabetes - Hemoglobin A1c; Future Primary osteoarthritis of right knee Other orders - diclofenac (VOLTAREN) 1 % topical gel; Apply 4 g topically 2 (two) times a day. Plan Continue with amlodipine 10 mg daily and lisinopril 2.5 mg daily. Continue with Wellbutrin 300 mg daily and clonidine 0.1 mg daily. Continue with famotidine 20 mg twice a day. Patient reports right knee pain, likely related to knee osteoarthritis, improving with rest, advised to continue using ice compression, diclofenac gel as needed. Patient has had relief with Tylenol continue as needed use. Repeat blood work as ordered prior to next visit Follow up in about 3 months (around 10/06/2025). Orders Placed This Encounter Procedures CBC and differential Comprehensive metabolic panel Lipid panel with reflex to direct LDL Hemoglobin A1c No results found for this or any previous visit (from the past 4 weeks). Mara Reyna MD on 07/06/2025 at 1:35 PM EDT [1] Family History Problem Relation Name Age of Onset Heart failure Mother Lida Diabetes Mother Lida Kidney disease Mother Lida No Known Problems Father COPD Sister Preet COPD Brother Heath tobacco Cervical cancer Paternal Grandmother Isabelle Ovarian cancer Paternal Grandmother Isabelle Hypertension Sister Ciarra Hypertension Sister Jody No Known Problems Son Asthma Son Grady No Known Problems Son No Known Problems Son [2] Outpatient Medications Marked as Taking for the 07/06/25 encounter (Office Visit) with Mara Reyna MD Medication Sig Dispense Refill amLODIPine (NORVASC) 10 mg tablet TAKE 1 TABLET BY MOUTH 1 TIME EACH DAY. 90 tablet 1 buPROPion XL (WELLBUTRIN XL) 300 mg 24 hr tablet TAKE 1 TABLET BY MOUTH 1 TIME EACH DAY IN THE MORNING. 90 tablet 1 cholecalciferol (VITAMIN D-3) 250 mcg (10,000 unit) capsule Take by mouth. cloNIDine (CATAPRES) 0.1 mg tablet Take 1 tablet (0.1 mg total) by mouth 1 (one) time each day. diclofenac (VOLTAREN) 1 % topical gel Apply 4 g topically 2 (two) times a day. 450 g 2 famotidine (PEPCID) 20 mg tablet TAKE 1 TABLET BY MOUTH TWICE A DAY 180 tablet 1 lidocaine (LIDODERM) 5 % patch Apply 1 patch topically 1 (one) time each day. Remove & discard patch within 12 hours or as directed by . lisinopriL (PRINIVIL,ZESTRIL) 2.5 mg tablet TAKE 1 TABLET BY MOUTH 1 TIME EACH DAY. 90 tablet 0 magnesium gluconate (MAGONATE) 27.5 mg magne- sium (500 mg) tablet Take 1 tablet (27.5 mg total) bymouth 1 (one) time each day. [DISCONTINUED] diclofenac (VOLTAREN) 1 % topical gel APPLY 2 G TOPICALLY TWICE A DAY 200 g 2 [DISCONTINUED] Pataday Once Daily Relief 0.7 % drops PLACE 1 DROP INTO THE EYE(S) EVERY 24 HOURS ASNEEDED FOR ITCHING documented in this encounter Plan of Treatment Scheduled Orders Name Type Priority Associated Diagnoses Orde r Schedule CBC and differential Lab Routine Primary hypertension Expected: 07/06/2025, Expires: 01/04/2026 Comprehensive metabolic panel Lab Routine Primary hypertension Expected: 07/06/2025, Expires: 01/04/2026 Lipid panel with reflex to direct LDL Lab Routine Primary hypertension Expected: 07/06/2025, Expires: 07/06/2026 Hemoglobin A1c Lab Routine Prediabetes Expected: 07/06/2025, Expires: 01/04/2026 documented as of this encounter Visit Diagnoses Diagnosis Primary hypertension- Primary Unspecified essential hypertension Recurrent major depressive disorder, in full remission ([facility] V24) Prediabetes Other abnormal glucose Primary osteoarthritis of right knee Need for prophylactic vaccination and inoculation against influenza documented in this encounter Discontinued Medications Medication Sig Discontinue Reason Start Date End Da te valACYclovir (VALTREX) 1 gram tablet Take 1 tablet (1,000 mg total) by mouth every 12 (twelve) hours. for 7 days Therapy completed 03/13/2025 07/06/2025 Pataday Once Daily Relief 0.7 % drops PLACE 1 DROP INTO THE EYE(S) EVERY 24 HOURS NEEDED FOR ITCHING Therapy completed 03/13/2025 07/06/2025 diclofenac (VOLTAREN) 1 % topical gel APPLY 2 G TOPICALLY TWICE A DAY Reorder 05/16/2025 07/06/2025 documented as of this encounter Historical Medications * This list may reflect changes made after this encounter. lidocaine (LIDODERM) 5 % patch Apply 1 patch topically 1 (one) time each day. Remove & discard patch within 12 hours or as directed by MD. added in this encounter Orders Immunization/Injection Count Last Ordered Date First Ordered Date INFLUENZA TRIVALENT, 0.5ML ( FLUAD) 65YO AND OLDER 1 07/06/2025 documented in this encounter Additional Health Concerns Assessment Noted Time PHQ-9 Depression Total Score: 0 03/24/20 3:00 PM EDT documented as of this encounter Care Teams Marketing Services Coordinator Relationship Specialty Start Date End Date Mara Reyna MD [address] [place] [phone] PCP - General Internal Medicine 10/12/24 documented as of this encounter
--- NOTE | ~2025-07-10 | US_ITS ---
EXAMINATION: US LOWER EXTREMITY VENOUS (REFLUX EXAM), BILATERAL CLINICAL INFORMATION: Bilateral lower extremity edema COMPARISON: None. TECHNIQUE: Color flow triplex imaging and compression Doppler was performed to evaluate both the deep and the superficial systems bilaterally. To evaluate the superficial system, the examination was performed in the upright position. Color-flow Doppler ultrasound and compression ultrasound were utilized. In addition, maneuvers were utilized to demonstrate reflux. FINDINGS: 1. DEEP VENOUS ULTRASOUND OF THE RIGHT LOWER EXTREMITY: Common Femoral Vein: Compressible, normal respiratory variation and augmented flow. Femoral Vein: Compressible, normal color flow and augmentation. Popliteal Vein: Compressible, normal augmentation. Deep Reflux: There is no evidence of reflux in the deep system in either the common femoral vein, superficial femoral or the popliteal vein. 2. SUPERFICIAL ULTRASOUND WITH DOPPLER OF RIGHT LOWER EXTREMITY: GREAT SAPHENOUS VEIN: Saphenofemoral Junction: 0.7 cm; Reflux: 0 ms Proximal Thigh: 0.5 cm; Reflux: 0 ms Mid Thigh: 0.5 cm; Reflux: 0 ms Distal Thigh: 0.4 cm; Reflux: 0 ms At Knee: 0.4 cm; Reflux: 0 ms Below Knee/Proximal Calf: 0.2 cm; Reflux: 0 ms Mid Calf: 0.2 cm; Reflux: 0 ms Ankle/Distal Calf: 0.3 cm; Reflux: 0 ms Lateral accessory GREAT SAPHENOUS VEIN: Saphenofemoral Junction: 0.3 cm; Reflux: 0 ms Mid Thigh: 0.3 cm; Reflux: 0 ms SMALL SAPHENOUS VEIN: Drainage: Thigh Extension Saphenopopliteal Junction: 0.2 cm; Reflux: 0 ms Mid calf: 0.2 cm; Reflux: 0 ms Distal: 0.2 cm; Reflux: 0 ms VEIN OF GIACOMINI: Size: NA cm Reflux: NA ms PERFORATORS: Location: Small saphenous vein, mid calf Size: 0.2 cm Reflux: 0 ms VARICOSITIES > 3mm: Location: Great saphenous vein, midthigh Size: 0.3 cm Reflux: 0 ms 3. DEEP VENOUS ULTRASOUND OF THE LEFT LOWER EXTREMITY: Common Femoral Vein: Compressible, normal respiratory variation and augmented flow. Femoral Vein: Compressible, normal color flow and augmentation. Popliteal Vein: Compressible, normal augmentation. Deep Reflux: There is no evidence of reflux in the deep system in either the common femoral vein, superficial femoral or the popliteal vein. 4. SUPERFICIAL ULTRASOUND WITH DOPPLER OF LEFT LOWER EXTREMITY: GREAT SAPHENOUS VEIN: Saphenofemoral Junction: 0.8 cm; Reflux: 0 ms Proximal Thigh: 0.5 cm; Reflux: 0 ms Mid Thigh: 0.3 cm; Reflux: 0 ms Distal Thigh: 0.3 cm; Reflux: 0 ms At Knee: 0.3 cm; Reflux: 0 ms Below Knee/Proximl calf: 0.3 cm; Reflux: 0 ms Mid Calf: 0.2 cm; Reflux: 0 ms Distal Calf/Ankle: 0.14 cm; Reflux: 1350 ms Lateral accessory GREAT SAPHENOUS VEIN: Saphenofemoral Junction: 0.4 cm; Reflux: 0 ms Mid Thigh: 0.2 cm; Reflux: 0 ms SMALL SAPHENOUS VEIN: Drainage: Thigh extension Saphenopopliteal Junction: 0.2 cm; Reflux: 0 ms Mid calf: 0.2 cm; Reflux: 0 ms Distal calf: 0.2 cm; Reflux: 0 ms VEIN OF GIACOMINI: Size: NA Reflux: NA PERFORATORS: Location: Greater saphenous vein bryologist into varicosity, distal calf Size: 0.3 cm Reflux: 0 ms VARICOSITIES > 3mm: Location: Great saphenous vein, distal thigh Size: 0.3 cm Reflux: 950 ms US/US venous insuf bilat IMPRESSION: Right: No venous reflux is demonstrated. Left: Venous incompetence. Greater saphenous vein reflux at the ankle and a bryologist into varicosity at the distal calf involving greater saphenous vein refluxes. Electronically signed by: Guy Kasper MD 07/10/2025 10:03 AM EDT
--- OUTSIDE RECORDS SUMMARY | 2025-07-10 08:43 | XMS_ITS | Clinical Summary ---
Author Organization [facility] [address] [facility] Address [address] [place] [address] Phone Care Team Providers Care Metal Hanger Name Role Phone Mara Dallas MD Primary Care Provider [phone] Allergies Active Allergy Reactions Criticality Noted Date Comments Morphine 07/16/2020 seizures Medications cholecalcifero l (VITAMIN D-3) 250 mcg (10,000 unit) capsule Take by mouth. Active magnesium gluconate (MAGONATE) 27.5 mg magne- sium (500 mg) tablet Take 1 tablet (27.5 mg total) by mouth 1 (one) time each day. Active cloNIDine (CATAPRES) 0.1 mg tablet Take [...] DAY. 90 tablet 1 05/16/20 25 Active famotidine (PEPCID) 20 mg tablet TAKE 1 TABLET BY MOUTH TWICE A DAY 180 tablet 1 06/21/20 25 Active lisinopriL (PRINIVIL,ZEST RIL) 2.5 mg tablet TAKE 1 TABLET BY MOUTH 1 TIME EACH DAY. 90 tablet 06/22/20 25 Active lidocaine (LIDODERM) 5 % patch Apply 1 patch topically 1 (one) time each day. Remove & discard patch within 12 hours or as directed by MD. Active diclofenac (VOLTAREN) 1 % topical gel Apply 4 g topically 2 (two) times a day. 450 g 2 07/06/20 Active famotidine (PEPCID) 20 mg tablet TAKE 1 TABLET BY MOUTH TWICE A DAY 180 tablet 1 10/04/20 24 025 Discontinued Pataday Once Daily Relief 0.7 % drops PLACE 1 DROP INTO THE EYE(S) EVERY 24 HOURS NEEDED FOR ITCHING 03/13/20 25 025 Discontinued(Th erapy completed) valACYclovir (VALTREX) 1 gram tablet Take 1 tablet (1,000 mg total) by mouth every 12 (twelve) hours. for 7 days 03/13/20 25 025 Discontinued( erapy completed) lisinopriL (PRINIVIL,ZEST RIL) 2.5 mg tablet Take 1 tablet (2.5 mg total) by mouth 1 (one) time each day. 90 each 03/24/20 25 025 Discontinued diclofenac (VOLTAREN) 1 % topical gel APPLY 2 G TOPICALLY TWICE A DAY 200 g 2 05/16/20 25 025 Discontinued(Re order) Active Problems Problem Noted Date Diagnosed Date Obesity, morbid ([facility] V24, [facility] V28) 03/24 Assessment & Plan (03/24/2025 3:35 PM EDT): Posterior vitreous degeneration, right Prediabetes 11/18/2024 Depression 06/08/2024 Asymptomatic varicose veins of both lower extrem ities 10/08/2020 Decreased GFR 10/08/2020 Hypertension 07/16/2020 Assessment [...] Attention deficit disorder 07/16/2020 Anxiety disorder 07/16/2020 Resolved Problems Problem Noted Date Diagnosed Date Resolved Date CKD (chronic kidney disease) , stage III ([facility] V24, [facility] V28) 11/04/2020 07/06/2025 Encounters Date Type Department Care Team Description 07/06/2025 1:15 PM EDT Office Visit Adult Medicine [address] [phone] Mara Dallas MD Primary hypertension (Primary Dx); Recurrent major depressive disorder, in full remission ([facility] V24); Prediabetes; Primary osteoarthritis of right knee; Need for prophylactic vaccination and inoculation against influenza 05/11/2025 9:15 AM EDT Office Visit Orthopedic Surgery [address] [phone] Otis Hatfield, DPM Arthritis of both feet (Primary Dx); Plantar fasciitis; Pes planus of both feet; Calcaneal spur of right foot; Lumbosacral radiculopathy 04/18/2025 Telephone Adult [address] [phone] Mara Dallas MD from Last 3 Months Immunizations Immunization Administration Dates Next Due Influenza Quadrivalent, 0.5m l, preservative free (Fluarix; FluLaval; Fluzone) ages 6mo and older (Afluria) 3yo and older 07/13/2017 Influenza trivalent, 0.5mL (Fluad) 65yo and olde r 07/06/2025,06/08/2024 Influenza trivalent, 0.5mL ( Fluzone High-dose) 65yo [...] TRANSVERSE Medical History Medical History Date Comments Anxiety disorder DX:Anxiety diso rder Depression DX:Depression ADHD (attention deficit hyperactivity disorder) Arthritis Family History Medical History Relation [...] care for your loved ones. For example, children's minister or elderly care for an older adult? [...] Mass Index 43.65 07/06/2025 1:05 PM EDT Plan of Treatment Health Maintenance Due Date Last Done Comments Breast Cancer Screening 1955 Zoster Vaccines (1 of 2) 02/20/1976 RSV Immunization Adult Patients (1 - Risk 60-74 years 1-dose series) 2017 Falls Risk Assessment 05/03/2024 Hepatitis C Screening 05/03/2024 Medicare Annual Wellness Visit 05/03/2024 Osteoporosis Screening (Bone Density Screening) 05/03/2024 COVID-19 Vaccine ( season) 2025 04/28/2022, 10/06/2021, 01/22/2021, Additional history exists DTaP,Tdap,and Td Vaccines (2 - Td or Tdap) 12/16/2025 12/17/2015 Social Influencers of Health Screening 03/19/2026 03/19/2025 Hypertension/CHF/CAD Annual BMP Blood Test 03/22/2026 03/22/2025, 10/13/2024, 06/09/2024, Additional history exists Colorectal Cancer Screening: FIT-DNA (Cologuard) 04/11/2028 04/11/2025, 04/11/2025, 04/11/2025 Cholesterol Screening (Lipid Panel) 03/22/2030 03/22/2025, 06/09/2024, 06/09/2024 Depression Screening Completed 03/24/2025 Pneumococcal Vaccine: 50+ Years Completed 03/24/2025, 07/09/2012 Influenza Vaccine Completed 07/06/2025, , 06/08/2024, Additional history exists HIB Vaccines Aged Out No longer eligi [...] EDT Special screening for malignant neoplasms, colon COMPREHENSIVE METABOLIC PANEL Routine 03/22/2025 8:05 AM EDT Primary hypertension LIPID PANEL WITH REFLEX TO DIRECT LDL Routine 03/22/2025 8:05 AM EDT Primary hypertension from Last 3 Months or Most Recently Relevant to Health Maintenance Results * Cologuard?? colon cancer screening (04/11/2025 6:20 PM EDT) COLOGUARD Negative Negative [facility] Comment: The Cologuard (TM) test was [...] cancer. Following a negative Cologuard result, the [place] [employer] and U.S. Multi-Society Task Force screening guidelines recommend a Cologuard re-screening interval of 3 years. References: [place] [employer] Guideline for Colorectal Cancer Screening: https://www.cancer.org/cancer/ejvwd-zolusd-wqenst/iowljdiie-xjwtvkyhq-egsffmp/ac s-rec ommendations.html.; Mynor DK, Avni GARCIA, Debora VARGAS, Colorectal Cancer Screening: Recommendations for Physicians and Patients from the U.S. Multi-Society Task Force on Colorectal Cancer Screening , Am J Gastroenterology 2017; 112:5772-0819. TEST DESCRIPTION: Composite algorithmic analysis of stool [...] (Pippa Ahmadi al, N Engl J Med 2014;370(14):4700-4220.) Cologuard may produce a false negative or false positive result (no colorectal cancer or precancerous polyp present at colonoscopy follow up). A negative Cologuard test result does not guarantee the absence of CRC or advanced adenoma (pre-cancer). The current Cologuard screening interval is every 3 years. ([place] [employer] and U.S. Multi-Society Task Force). Cologuard performance data in a 10,000 patient pivotal study using colonoscopy as the reference method can be accessed at the following location: www.exactlabs.com/results. Additional description of the Cologuard test process, warnings and precautions can be found at www.colVantrixrd.com. Stool 04/11/2025 6:20 PM EDT 04/13/2025 1:08 PM EDT us Mara Dallas MD LAB MOLECULAR DIAGNOSTICS ORDERA BLES Final Result [facility] [address] [place] [address] [facility] [address] [place] [address] * (ABNORMAL) Lipid panel with reflex to direct LDL (03/22/2025 8:05 AM EDT) Cholesterol 178 0 - 200 mg/dL LAB CHEMISTRY METHOD 03/22/2025 10:34 AM EDT [facility] Triglycerides 74 0 - 150 mg/dL LAB CHEMISTRY METHOD 03/22/2025 10:34 AM EDT [facility] HDL 55 >=40 mg/dL LAB CHEMISTRY METHOD 03/22/2025 10:34 AM EDT [facility] LDL Calculated 108(H) 0 - 100 mg/dL LAB CHEMISTRY METHOD 03/22/2025 10:34 AM EDT [facility] VLDL Cholesterol Jhony 14.8 mg/dL LAB CHEMISTRY METHOD 03/22/2025 10:34 AM EDT [facility] Non HDL Chol. (LDL+VLDL) 123 <145 mg/dL LAB CHEMISTRY METHOD 03/22/2025 10:34 AM EDT [facility] Chol/HDL Ratio 3.2 0.0 - 4.4 LAB CHEMISTRY METHOD 03/22/2025 10:34 AM EDT [facility] Blood Venous blood specimen / Unknown Venipuncture / Unknown 03/22/2025 8:05 AM EDT 03/22/2025 8:05 AM EDT us Mara Dallas MD LAB BLOOD ORDERABLES Final Resul t [facility] [address] [place] [address], * (ABNORMAL) Comprehensive metabolic panel (03/22/2025 8:05 AM EDT) Sodium 138 133 - 145 mmol/L LAB CHEMISTRY METHOD 03/22/2025 10:34 AM [facility] Potassium 4.4 3.5 - 5.5 mmol/L LAB CHEMISTRY METHOD 03/22/2025 10:34 AM [facility] Chloride 105 96 - 110 mmol/L LAB CHEMISTRY METHOD 03/22/2025 10:34 AM [facility] CO2 29 21 - 32 mmol/L LAB CHEMISTRY METHOD 03/22/2025 10:34 AM [facility] Anion Gap 4 3 - 11 LAB CHEMISTRY METHOD 03/22/2025 10:34 AM [facility] Glucose 104(H) 70 - 100 mg/dL LAB CHEMISTRY METHOD 03/22/2025 10:34 AM [facility] BUN 14 5 - 25 mg/dL LAB CHEMISTRY METHOD 03/22/2025 10:34 AM [facility] Creatinine 1.04 0.50 - 1.10 mg/dL LAB CHEMISTRY METHOD 03/22/2025 10:34 AM [facility] eGFR 59(L) >=60 mL/min/1. 73m2 LAB CHEMISTRY METHOD 03/22/2025 10:34 AM [facility] Comment:Calculation based on the Chronic Kidney Disease Epidemiology Collaboration (CKD-EPI) equation refit without adjustment for race. BUN/Creatinine Ratio 13.5 LAB CHEMISTRY METHOD 03/22/2025 10:34 AM [facility] Calcium 9.4 8.5 - 10.5 mg/dL LAB CHEMISTRY METHOD 03/22/2025 10:34 AM [facility] AST (SGOT) 15 10 - 42 unit/L LAB CHEMISTRY METHOD 03/22/2025 10:34 AM EDT [facility] ALT (SGPT) 26 10 - 60 unit/L LAB CHEMISTRY METHOD 03/22/2025 10:34 AM EDT [facility] Alkaline Phosphatase 70 42 - 121 unit/L LAB CHEMISTRY METHOD 03/22/2025 10:34 AM EDT [facility] Total Protein 7.1 6.0 - 8.0 g/dL LAB CHEMISTRY METHOD 03/22/2025 10:34 AM EDT [facility] Albumin 3.9 3.2 - 5.0 g/dL LAB CHEMISTRY METHOD 03/22/2025 10:34 AM EDT [facility] Total Bilirubin 0.5 0.0 - 1.4 mg/dL LAB CHEMISTRY METHOD 03/22/2025 10:34 AM EDT [facility] Blood Venous blood specimen / Unknown Venipuncture / Unknown 03/22/2025 8:05 AM EDT 03/22/2025 8:05 AM EDT us Mara Dallas MD LAB BLOOD ORDERABLES Final Resul t [facility] [address] [place] [address], from Last 3 Months or Most Recently Relevant to Health Maintenance Insurance [place] [facility] Care Teams Metal Hanger Relationship Specialty Start Date End Date Mara Dallas MD [address] [place] [phone] PCP - General Internal Medicine 10/12/24
== END 2025-07-10 08:20 | disposition home or self-care (01) ==
LOC: HO.US 08:19
PROVIDERS: PCP Internal Medicine; Visit Provider Internal Medicine
DX: R60.0 Localized edema (principal)
CPT/HCPCS: 93970

== ENCOUNTER → 2025-07-10 08:40 | Outpatient (BNV) | payer MEDICARE, MEDICAID, SELFPAY | PROVIDERS: PCP Internal Medicine; Visit Provider Radiology Diagnostic Radiology | DX: I83.892 Varicose veins of left lower extremity with other complications (principal) | CPT/HCPCS: 93970 ==

== ENCOUNTER 2025-08-02 14:40 | Outpatient (AMB) | payer MEDICARE, MEDICAID, SELFPAY ==
[2025-08-02 14:48] VITALS: BP 138/70; PULSE 81; TEMP 36.7; O2SAT 96; BMI 41.5
--- NOTE | 2025-08-02 14:48 | AM.OFFWIN_ITS ---
Intake Vital Signs 08/02/25 14:48 Height 5 ft 2 in Weight 227 lb BMI 41.5 BP 138/70 Blood Pressure Location Rt brachial Position Sitting Pulse 81 Pulse Source Pulse Oximeter Temp 98.1 F Temp Source Oral Pulse Oximetry (%) 96 Oxygen Delivery Method Room Air Intake Visit Reasons: EP-lt side face swollen, cough Intake Note: EP complains of swilling over her left eyes and left check since this morning. She also complains of dry cough which is worsening during the night since April 2025. Patient Tobacco Use Status: Never used Tobacco Allergies morphine (MORPHINE) Allergy (Unknown, Verified 08/02/25 14:57) shakes violently Do you need a note to return to daycare/school/sports/work: No HPI HPI Comments History of Present Illness Details History of Present Illness - The patient is a 70-year-old female pr esenting with concerns of a potential recurrence of shingles and a persistent cough. facial swelling - The patient reports a history of shing les, with the current episode starting with tingling and painful sensations on the face, similar to previous episodes. - The patient has experienced this condi tion twice before, with the first occurrence leading to facial deformation and the second managed with Valacyclovir (Valtrex). - The current episode began this morning with burning, tingling, and painful sensations, and the patient anticipates the need for Valacyclovir treatment again. - She can feel the bumps starting on the side of her face. - She denies eye pain, fever, chills, CP , SOB, cold symptoms. Chronic Cough - The patient reports a persistent dry c ough since May, which occasionally causes shortness of breath and wheezing. - The cough is severe enough to induce v omiting at times and has not been associated with fever or phlegm. - The patient has a family history of [place] PD, with a brother who from the condition and a sister currently affected. - The patient is currently on lisinopril , which may be contributing to the cough, as it is a known side effect of KOKO inhibitors. - She states that Albuterol helps with t he cough. Physical Exam General: Cooperative, healthy appearing, comfortable, no acute distress and well developed Orientation: Patient oriented x3 Limitations: No limitations Head: Normal to inspection Ears: Hearing grossly normal bilaterally Nose: Normal external nose present Face and sinus: Rash on the face, same spot as previous episodes of shingles Eyes: Appearance normal, both eyes and all related structures Neck: Normal visual inspection and Yes full ROM Respiratory: Normal respiratory effort, able to speak in complete sentences. No w/r/r noted. Cardiovascular: Regular rate and rhythm. Normal S1 and S2 GI: Normal to inspection. Soft to palpation and nontender Skin: No rashes or lesions. Swelling noted on the cheek bone with mild warmth and erythema. Patient was informed and verbally consented to the use of an ambient scribe for clinic note documentation during this visit. [facility] Social History Patient Tobacco Use Status: Never used Tobacco Review of Systems Const All systems reviewed & are unremarkable except as noted in HPI and below Physical Exam Vital Signs: Last Vital Signs Temp 98.1 F 08/02/25 14:48 Pulse 81 08/02/25 14:48 BP 138/70 08/02/25 14:48 Pulse Ox 96 08/02/25 14:48 Oxygen Delivery Method Room Air 08/02/25 14:48 BMI result Body Mass Index 41.5 Assessment & Plan Assessment & Plan (1) Swelling of left side of face: Code(s): R22.0 - Localized swelling, mass and lump, head Plan: Most likely Herpes Zoster (Shingles) - Prescribed Valacyclovir for antiviral treatment to manage the current episode of shingles. (2) Cough: Code(s): R05.9 - Cough, unspecified Qualifiers: Cough type: acute Qualified Code(s): R05.1 - Acute cough Plan: Most likely COPD vs RAD vs KOKO reaction? - Recommended pulmonary function tests to evaluate lung capacity and rule out COPD. - Prescribed an inhaler to manage symptoms of cough and shortness of breath. - Advised to discuss with primary care physician - Suggested discussing with primary care physician about discontinuing lisinopril to assess if the cough resolves. Medications: New valacyclovir 1,000 mg PO Q8H 21 tabs 0RF 7 days albuterol sulfate 90 mcg/actuation 2 puffs inhalation Q6H PRN 8.5 grams 0RF shortness of breath or wheezing or cough Coding Level of Care Code Est Pt Level 4 (51878) Diagnoses Swelling of left side of face R22.0 Acute cough R05.1 Cough type: acute
--- OUTSIDE RECORDS SUMMARY | 2025-08-02 19:03 | XMS_ITS | Clinical Summary ---
Author Organization [facility] [address] [facility] Address [address] [facility] [place] [phone] Phone Care Team Providers Care Core Machine Tender Name Role Phone Mara Dallas MD Primary Care Provider [phone] Allergies Active Allergy Reactions Criticality Noted Date [...] by mouth 1 (one) time each day. 5 Active buPROPion XL (WELLBUTRIN XL) 300 mg 24 hr tablet TAKE 1 TABLET BY MOUTH 1 TIME EACH DAY IN THE MORNING. 90 tablet 1 5 Active amLODIPine (NORVASC) 10 mg tablet TAKE 1 TABLET BY MOUTH 1 TIME EACH DAY. 90 tablet 1 5 Active famotidine (PEPCID) 20 mg tablet TAKE 1 TABLET BY MOUTH TWICE A DAY 180 tablet 1 5 Active lisinopriL (PRINIVIL,ZESTR IL) 2.5 mg tablet TAKE 1 TABLET BY MOUTH 1 TIME EACH DAY. 90 tablet 5 Active lidocaine (LIDODERM) 5 % patch Apply 1 patch topically 1 (one) time each day. Remove & discard patch within 12 hours or as directed by MD. Active diclofenac (VOLTAREN) 1 % topical gel Apply 4 g topically 2 (two) times a day. 450 g 2 5 Active Pataday Once Daily Relief 0.7 % drops PLACE 1 DROP INTO THE EYE(S) EVERY 24 HOURS NEEDED FOR ITCHING 5 07/06/20 Discontinu ed(Therapy completed) valACYclovir (VALTREX) 1 gram tablet Take 1 tablet (1,000 mg total) by mouth every 12 (twelve) hours. for 7 days 5 07/06/20 25 Discontinu ed(Therapy completed) diclofenac (VOLTAREN) 1 % topical gel APPLY 2 G TOPICALLY TWICE A DAY 200 g 2 5 07/06/20 Discontinu ed(Reorder ) Active Problems Problem Noted Date Diagnosed Date Obesity, morbid ([facility] V24, [facility] V28) 03/24 Assessment & Plan (03/24/2025 3:35 PM EDT): Posterior vitreous degeneration, right 5 Prediabetes 11/18/2024 Depression 06/08/2024 Asymptomatic varicose veins [...] CKD (chronic kidney disease) , stage III ([facility] V24, [facility] V28) 11/04/2020 07/06/2025 Encounters Date Type Department Care Team Description 07/06/2025 1:15 PM EDT Office Visit Adult Medicine [address] [phone] Mara Dallas MD Primary hypertension (Primary Dx); Recurrent major depressive disorder, in full remission ([facility] V24); Prediabetes; Primary osteoarthritis of right knee; Need for prophylactic vaccination and inoculation against influenza 05/11/2025 9:15 AM EDT Office Visit Orthopedic Surgery [facility] [address] [place] [phone] Otis Hatfield DPM Arthritis of both feet (Primary Dx); Plantar fasciitis; Pes planus of both feet; Calcaneal spur of right foot; Lumbosacral radiculopathy from Last 3 Months Immunizations Immunization Administration [...] Problems Son 4 Relation Name Status Comments Brothmaria fernanda Joe Daughter Father Mother Lida Paternal Grandmother Isabelle [...] for your loved ones. For example, child psychology teacher or elderly care for an older adult? [...] 07/06/2025 1:05 PM EDT Plan of Treatment Upcoming Encounters Date Type Department Care Team (Late st Contact Info) Description 10/10/2025 3:45 PM EST Office Visit Adult Medicine [address] [phone] Mara Dallas MD [address] [place] [address] Health Maintenance Due Date Last Done Comments Breast Cancer Screening 1955 Zoster Vaccines (1 of 2) 02/20/1976 RSV Immunization Adult Patients (1 - Risk 50-74 years 1-dose series) 2007 Falls Risk Assessment 05/03/2024 Hepatitis C Screening [...] Procedure Name Priority Date/Time Associated Diagnosis Comments EXTERNAL ULTRASOUND REPORT 07/10/2025 LAB COLOGUARD COLON CANCER SCREEN Routine 04/11/2025 6:20 PM EDT Special screening for malignant neoplasms, colon COMPREHENSIVE METABOLIC PANEL Routine 03/22/2025 8:05 AM EDT Primary hypertension LIPID PANEL WITH REFLEX TO DIRECT LDL Routine 03/22/2025 8:05 AM EDT Primary hypertension from Last 3 Months or Most Recently Relevant to Health Maintenance Results * External Ultrasound Report (07/10/2025) Anatomical Region Laterality Modality Ultrasound us Provider [facility] PROCEDURES Final Result * Cologuard?? colon cancer screening (04/11/2025 6:20 PM EDT) COLOGUARD Negative Negative [facility] Comment: The Cologuard (TM) test was [...] cancer. Following a negative Cologuard result, the [place] Cancer Society and U.S. Multi-Society Task Force screening guidelines recommend a Cologuard re-screening interval of 3 years. References: [place] [employer] Guideline for Colorectal Cancer Screening: https://www.cancer.org/cancer/ujzzf-narkjn-jzbqoj/cuxzswdta-vjqxevjzi-oqmccgz/ac s-rec ommendations.html.; Mynor DK, Avni CR, Debora RiveraK, Colorectal Cancer Screening: Recommendations for Physicians and Patients from the U.S. Multi-Society Task Force on Colorectal Cancer Screening , Am J Gastroenterology 2017; 112:4543-7555. TEST DESCRIPTION: Composite algorithmic analysis of stool [...] (Pippa Ahmadi al, N Engl J Med 2014;370(14):2481-6418.) Cologuard may produce a false negative or false positive result (no colorectal cancer or precancerous polyp present at colonoscopy follow up). A negative Cologuard test result does not guarantee the absence of CRC or advanced adenoma (pre-cancer). The current Cologuard screening interval is every 3 years. ([place] Cancer Society and U.S. Multi-Society Task Force). Cologuard performance data in a 10,000 patient pivotal study using colonoscopy as the reference method can be accessed at the following location: www.[employer].com/results. Additional description of the Cologuard test process, warnings and precautions can be found at www.cologuard.com. Stool 04/11/2025 6:20 PM EDT 04/13/2025 1:08 PM EDT us Mara Dallas MD LAB MOLECULAR DIAGNOSTICS ORDERA BLES Final Result [facility] [address] [place] [address] [employer] [address] [place] [address] * (ABNORMAL) Lipid panel with reflex to direct LDL (03/22/2025 8:05 AM EDT) Cholesterol 178 0 - 200 mg/dL LAB CHEMISTRY METHOD 03/22/2025 10:[address] [facility] Triglycerides 74 0 - 150 mg/dL LAB CHEMISTRY METHOD 03/22/2025 10:[address] [facility] HDL 55 >=40 mg/dL LAB CHEMISTRY METHOD 03/22/2025 10:[address] [facility] LDL Calculated 108(H) 0 - 100 mg/dL LAB CHEMISTRY METHOD 03/22/2025 10:[address] [facility] VLDL Cholesterol Jhony 14.8 mg/dL LAB CHEMISTRY METHOD 03/22/2025 10:[address] [facility] Non HDL Chol. (LDL+VLDL) 123 <145 mg/dL LAB CHEMISTRY METHOD 03/22/2025 10:[address] [facility] Chol/HDL Ratio 3.2 0.0 - 4.4 LAB CHEMISTRY METHOD 03/22/2025 10:[address] [facility] Blood Venous blood specimen / Unknown Venipuncture / Unknown 03/22/2025 8:05 AM EDT 03/22/2025 8:05 AM EDT us Mara Dallas MD LAB BLOOD ORDERABLES Final Resul t [facility] [address] [place] [address], * (ABNORMAL) Comprehensive metabolic panel (03/22/2025 8:05 AM EDT) Sodium 138 133 - 145 mmol/L LAB CHEMISTRY METHOD 03/22/2025 10:[address] [facility] Potassium 4.4 3.5 - 5.5 mmol/L LAB CHEMISTRY METHOD 03/22/2025 10:[address] [facility] Chloride 105 96 - 110 mmol/L LAB CHEMISTRY METHOD 03/22/2025 10:[address] [facility] CO2 29 21 - 32 mmol/L LAB CHEMISTRY METHOD 03/22/2025 10:[address] [facility] Anion Gap 4 3 - 11 LAB CHEMISTRY METHOD 03/22/2025 10:[address] [facility] Glucose 104(H) 70 - 100 mg/dL LAB CHEMISTRY METHOD 03/22/2025 10:[address] [facility] BUN 14 5 - 25 mg/dL LAB CHEMISTRY METHOD 03/22/2025 10:[address] [facility] Creatinine 1.04 0.50 - 1.10 mg/dL LAB CHEMISTRY METHOD 03/22/2025 10:[address] [facility] eGFR 59(L) >=60 mL/min/1. 73m2 LAB CHEMISTRY METHOD 03/22/2025 10:[address] [facility] Comment:Calculation based on the Chronic Kidney Disease Epidemiology Collaboration (CKD-EPI) equation refit without adjustment for race. BUN/Creatinine Ratio 13.5 LAB CHEMISTRY METHOD 03/22/2025 10:[address] [facility] Calcium 9.4 8.5 - 10.5 mg/dL LAB CHEMISTRY METHOD 03/22/2025 10:34 AM EDT [facility] AST (SGOT) 15 10 - 42 unit/L LAB CHEMISTRY METHOD 03/22/2025 10:34 AM EDT [facility] ALT (SGPT) 26 10 - 60 unit/L LAB CHEMISTRY METHOD 03/22/2025 10:34 AM EDT [facility] Alkaline Phosphatase 70 42 - 121 unit/L LAB CHEMISTRY METHOD 03/22/2025 10:34 AM EDT [facility] Total Protein 7.1 6.0 - 8.0 g/dL LAB CHEMISTRY METHOD 03/22/2025 10:34 AM EDT [facility] Albumin 3.9 3.2 - 5.0 g/dL LAB CHEMISTRY METHOD 03/22/2025 10:[address] [facility] Total Bilirubin 0.5 0.0 - 1.4 mg/dL LAB CHEMISTRY METHOD 03/22/2025 10:34 AM EDT [facility] Blood Venous blood specimen / Unknown Venipuncture / Unknown 03/22/2025 8:05 AM EDT 03/22/2025 8:05 AM EDT us Mara Dallas MD LAB BLOOD ORDERABLES Final Resul t [facility] [address] [place] [address], from Last 3 Months or Most Recently Relevant to Health Maintenance Insurance [place]ICA[place] [employer] [employer] [facility] Care Teams Core Machine Tender Relationship Specialty Start Date End Date Mara Dallas MD [address] [place] [phone] PCP - General Internal Medicine 10/12/24
== END 2025-08-02 15:44 | disposition home or self-care (01) ==
PROVIDERS: PCP Internal Medicine; Visit Provider Physician Assistant Medical
DX: R22.0 Localized swelling, mass and lump, head (principal); R05.1 Acute cough

== ENCOUNTER → 2025-08-02 14:40 | Outpatient (BNVA) | payer MEDICARE, MEDICAID, SELFPAY | PROVIDERS: PCP Internal Medicine; Visit Provider Physician Assistant Medical | DX: R05.3 Chronic cough (principal); R22.0 Localized swelling, mass and lump, head | CPT/HCPCS: 99212 ==

== ENCOUNTER 2025-09-11 14:54 | Outpatient (REF) | payer MEDICARE, MEDICAID, SELFPAY ==
--- OUTSIDE RECORDS SUMMARY | 2025-09-12 00:48 | XMS_ITS | Clinical Summary ---
Author Organization [facility] [address] [facility] Address [address] [facility] [place] [address] Phone Care Team Providers Care Adjunct Latin Professor Name Role Phone Mara Dallas MD Primary Care Provider [phone] Allergies Active Allergy Reactions Criticality Noted Date Comments Morphine 07/16/2020 seizures Medications cholecalciferol (VITAMIN D-3) 250 mcg (10,000 unit) capsule Take by mouth. Active magnesium gluconate (MAGONATE) 27.5 mg magne- sium (500 mg) tablet Take 1 tablet (27.5 mg total) by mouth 1 (one) time each day. Active buPROPion XL (WELLBUTRIN XL) 300 mg [...] 12 hours or as directed by . Active diclofenac (VOLTAREN) 1 % topical gel Apply 4 g topically 2 (two) times a day. 450 g 2 5 Active cloNIDine (CATAPRES) 0.1 mg tablet Take 1 tablet (0.1 mg total) by mouth 1 (one) time each day. 90 tablet 1 Active cloNIDine (CATAPRES) 0.1 mg tablet Take 1 tablet (0.1 mg total) by mouth 1 (one) time each day. 5 08/27/20 Discontinu ed(Reorder ) Active Problems Problem Noted Date Diagnosed Date Obesity, morbid 03/24/2025 Assessment & Plan (03/24/2025 3:35 PM EDT): [...] Diagnosed Date Resolved Date CKD (chronic kidney disease), stage III 11/04/2020 07/06/2025 Encounters Date Type Department Care Team Description 07/06/2025 1:15 PM EDT Office Visit Adult Medicine [address] [phone] Mara Dallas MD Primary hypertension (Primary Dx); Recurrent major depressive disorder, in full remission (CMS/HCC V24); Prediabetes; Primary osteoarthritis of right knee; Need for prophylactic vaccination and inoculation against influenza from Last 3 Months Immunizations Immunization Administration [...] Years Used Date Smoking Tobacco: Former Cigarettes 0 Q uit: 07/16/2003 Smokeless Tobacco: Never Alcohol [...] for your loved ones. For example, child day care teacher or elderly care for an older [...] Orientation Straight 02/20/2025 9: 49 AM EDT Last Filed Vital Signs Vital Sign Reading [...] Care Team (Late st Contact Info) Description 09/14/2025 3:30 PM EST Office Visit Adult Medicine [address] [phone] Mara Dallas MD [address] [place] [address] Health Maintenance Due Date Last Done Comments [...] Laterality Modality Ultrasound us Provider [facility] [employer] US PROCEDURES Final Result * Cologuard?? colon cancer screening (04/11/2025 6:20 PM EDT) COLOGUARD Negative Negative [facility] Comment: The Cologuard (TM) test was [...] screened with both Cologuard and colonoscopy. (Pippa Jurado et al, N Engl J Med 2014;370(14):1286- 1297) The normal value (reference range) for this assay is negative. COLOGUARD RE-SCREENING RECOMMENDATION: Periodic colorectal cancer screening is an important part of preventive healthcare for asymptomatic individuals at average risk for colorectal cancer. Following a negative Cologuard result, the [place] [employer] Society and U.S. Multi-Society Task Force screening guidelines recommend a Cologuard re-screening interval of 3 years. References: [place] [employer] Guideline for Colorectal Cancer Screening: https://www.cancer.org/cancer/bhveo-tikyht-hoxomk/xlcwcsmuq-iaxydwvxo-qamxeif/ac s-rec ommendations.html.; Mynor DK, Avni CR, Debora RiveraK, Colorectal Cancer Screening: Recommendations for Physicians and Patients from the U.S. Multi-Society Task Force on Colorectal Cancer Screening , Am J Gastroenterology 2017; 112:2573-2902. TEST DESCRIPTION: Composite algorithmic analysis of stool [...] (Pippa Ahmadi al, N Engl J Med 2014;370(14):4881-0678.) Cologuard may produce a false negative or false positive result (no colorectal cancer or precancerous polyp present at colonoscopy follow up). A negative Cologuard test result does not guarantee the absence of CRC or advanced adenoma (pre-cancer). The current Cologuard screening interval is every 3 years. ([place] [employer] Society and U.S. Multi-Society Task Force). Cologuard performance data in a 10,000 patient pivotal study using colonoscopy as the reference method can be accessed at the following location: www.[employer]/results. Additional description of the Cologuard test process, warnings and precautions can be found at www.ControlScanogBatiweb.comrd.com. Stool 04/11/2025 6:20 PM EDT 04/13/2025 1:08 PM EDT us Mara Dallas MD LAB MOLECULAR DIAGNOSTICS ORDERA BLES Final Result [address] [address] [employer] [address] [place] [address] * (ABNORMAL) Lipid panel with reflex to direct LDL (03/22/2025 8:05 AM EDT) Cholesterol 178 0 - 200 mg/dL LAB CHEMISTRY METHOD 03/22/2025 10:34 AM [facility] Triglycerides 74 0 - 150 mg/dL LAB CHEMISTRY METHOD 03/22/2025 10:34 AM T [facility] HDL 55 >=40 mg/dL LAB CHEMISTRY METHOD 03/22/2025 10:34 AM [facility] LDL Calculated 108(H) 0 - 100 mg/dL LAB CHEMISTRY METHOD 03/22/2025 10:34 AM EDT [facility] VLDL Cholesterol Jhony 14.8 mg/dL LAB CHEMISTRY METHOD 03/22/2025 10:34 AM [facility] Non HDL Chol. (LDL+VLDL) 123 <145 mg/dL LAB CHEMISTRY METHOD 03/22/2025 10:34 AM [facility] Chol/HDL Ratio 3.2 0.0 - 4.4 LAB CHEMISTRY METHOD 03/22/2025 10:34 AM T [facility] Blood Venous blood specimen / Unknown Venipuncture / Unknown 03/22/2025 8:05 AM EDT 03/22/2025 8:05 AM EDT us Mara Dallas MD LAB BLOOD ORDERABLES Final Resul t [facility] [address] [place] [address], * (ABNORMAL) Comprehensive metabolic panel (03/22/2025 8:05 AM EDT) [facility] Sodium 138 133 - 145 mmol/L LAB CHEMISTRY METHOD 03/22/2025 10:34 AM [facility] Potassium 4.4 3.5 - 5.5 mmol/L LAB CHEMISTRY METHOD 03/22/2025 10:34 AM [facility] Chloride 105 96 - 110 mmol/L LAB CHEMISTRY METHOD 03/22/2025 10:34 AM [facility] CO2 29 21 - 32 mmol/L LAB CHEMISTRY METHOD 03/22/2025 10:34 AM [facility] Anion Gap 4 3 - 11 LAB CHEMISTRY METHOD 03/22/2025 10:34 AM [facility] Glucose 104(H) 70 - 100 mg/dL LAB CHEMISTRY METHOD 03/22/2025 10:34 AM [facility] BUN 14 5 - 25 mg/dL LAB CHEMISTRY METHOD 03/22/2025 10:34 AM [facility] Creatinine 1.04 0.50 - 1.10 mg/dL LAB CHEMISTRY METHOD 03/22/2025 10:34 AM [facility] eGFR 59(L) >=60 mL/min/1. 73m2 LAB CHEMISTRY METHOD 03/22/2025 10:34 AM [facility] Comment:Calculation based on the Chronic Kidney Disease Epidemiology Collaboration (CKD-EPI) equation refit without adjustment for race. BUN/Creatinine Ratio 13.5 LAB CHEMISTRY METHOD 03/22/2025 10:34 AM [facility] Calcium 9.4 8.5 - 10.5 mg/dL LAB CHEMISTRY METHOD 03/22/2025 10:34 AM [facility] AST (SGOT) 15 10 - 42 unit/L LAB CHEMISTRY METHOD 03/22/2025 10:34 AM [facility] ALT (SGPT) 26 10 - 60 unit/L LAB CHEMISTRY METHOD 03/22/2025 10:34 AM [facility] Alkaline Phosphatase 70 42 - 121 unit/L LAB CHEMISTRY METHOD 03/22/2025 10:34 AM [facility] Total Protein 7.1 6.0 - 8.0 g/dL LAB CHEMISTRY METHOD 03/22/2025 10:34 AM [facility] Albumin 3.9 3.2 - 5.0 g/dL LAB CHEMISTRY METHOD 03/22/2025 10:34 AM EDT [facility] Total Bilirubin 0.5 0.0 - 1.4 mg/dL LAB CHEMISTRY METHOD 03/22/2025 10:34 AM EDT [facility] Blood Venous blood specimen / Unknown Venipuncture / Unknown 03/22/2025 8:05 AM EDT 03/22/2025 8:05 AM EDT us Mara Dallas MD LAB BLOOD ORDERABLES Final Resul t [facility] [address] [place] [address], from Last 3 Months or Most Recently Relevant to Health Maintenance Insurance [place]ICA[place] MEDIC[place] ADVANTAGE [facility] Care Teams Adjunct Latin Professor Relationship Specialty Start Date End Date Mara Dallas MD [address] [place] [phone] PCP - General Internal Medicine 10/12/24
== END 2025-09-11 14:55 | disposition home or self-care (01) ==
LOC: HO.LAB 14:54
PROVIDERS: PCP Internal Medicine
DX: R35.0 Frequency of micturition (principal)
CPT/HCPCS: 81003; 87086; 87088; 87186; 99212

== ENCOUNTER 2025-09-11 14:54 | Outpatient (AMB) | payer MEDICARE, MEDICAID, SELFPAY ==
[2025-09-11 14:55] VITALS: BP 140/62; PULSE 102; TEMP 36.6; O2SAT 96; BMI 40.8
--- NOTE | 2025-09-11 14:55 | AM.OFFWIN_ITS ---
Intake Vital Signs 09/11/25 14:55 Height 5 ft 2 in Weight 223 lb BMI 40.8 BP 140/62 H Blood Pressure Location Rt brachial Position Sitting Pulse 102 H Pulse Source Pulse Oximeter Temp 97.8 F Temp Source Oral Pulse Oximetry (%) 96 Oxygen Delivery Method Room Air Intake Visit Reasons: EP Possible UTI Intake Note: pt presents with burning and discomfort with voiding, body chills, low back pain and low abdominal pain beginning last night Patient Tobacco Use Status: Never used Tobacco Allergies morphine (MORPHINE) Allergy (Unknown, Verified 09/11/25 15:01) shakes violently Do you need a note to return to daycare/school/sports/work: No HPI HPI Comments History of Present Illness Details History - The patient is a 70 year old female pr esenting with symptoms concerning for a urinary tract infection. - Her symptoms started last night and in clude cramping, back pain, urinary frequency, and difficulty initiating urination. - She denies any burning on urination. - She reports a general feeling of being unwell. - The patient takes famotidine for reflu x. 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 - She has an upcoming appointment with [facility] primary care doctor on . - She denies CP, SOB, abd pain, n/v/d, h ematuria, or dysuria. Physical Exam General: Cooperative, healthy appearing, comfortable, no acute distress and well developed Cardiac: Normal S1 and S2. RRR, no M/R/G noted. Respiratory: Normal respiratory effort and able to speak in complete sentences. Clear to auscultation bilaterally. No w/r/r noted. Skin: No rashes or lesions noted. GI: Normal inspection. Normal BS noted. Soft, non-tender, non-distended. No TTP of all 4 quadrants. No guarding or rebound tenderness noted. Back: Negative CVA bilaterally Patient was informed and verbally consented to the use of an ambient scribe for clinic note documentation during this visit. [facility] Social History Patient Tobacco Use Status: Never used Tobacco Review of Systems Const All systems reviewed & are unremarkable except as noted in HPI and below Physical Exam Vital Signs: Last Vital Signs Temp 97.8 F 09/11/25 14:55 Pulse 102 H 09/11/25 14:55 BP 140/62 H 09/11/25 14:55 Pulse Ox 96 09/11/25 14:55 Oxygen Delivery Method Room Air 09/11/25 14:55 BMI result Body Mass Index 40.8 Results AMB Urinalysis, Automated UA Leukoctes 0 Digna/uL Last Edit by Jessika Ndiaye CMA on 09/11/25 15:16 UA Nitrite Negative Last Edit by Jessika Ndiaye CMA on 09/11/25 15:16 UA Urobilinogen 0.2 mg/dL Last Edit by Jessika Ndiaye CMA on 09/11/25 15:1 6 UA Protein 0 mg/dL Last Edit by Jessika Ndiaye CMA on 09/11/25 15:16 UA pH 6.0 Last Edit by Jessika Ndiaye CMA on 09/11/25 15:16 UA Blood 0 Mike/uL Last Edit by Jessika Ndiaye CMA on 09/11/25 15:16 UA Specific Goodell 1.015 Last Edit by Jessika Ndiaye CMA on 09/11/25 15: 16 UA Ketone Negative Last Edit by Jessika Ndiaye CMA on 09/11/25 15:16 UA Bilirubin 0 mg/dL Last Edit by Jessika Ndiaye CMA on 09/11/25 15:16 UA Glucose 0 mg/dL Last Edit by Jessika Ndiaye CMA on 09/11/25 15:16 Results Reviewed Results Reviewed: Laboratory Last Values Urine pH (Auto) 6.0 09/11/25 15:14 Specific Goodell (Auto) 1.015 09/11/25 15:14 Urine Protein (Auto) 0 mg/dL 09/11/25 15:14 Glucose (UA)(Auto) 0 mg/dL 09/11/25 15:14 Urine Ketones (Auto) Negative 09/11/25 15:14 Urine Blood (Auto) 0 Mike/uL 09/11/25 15:14 Urine Nitrite (Auto) Negative 09/11/25 15:14 Urine Bilirubin (Auto) 0 mg/dL 09/11/25 15:14 Urine Urobilinogen (Auto) 0.2 mg/dL 09/11/25 15:14 Leukocyte Esterase (Auto) 0 Digna/uL 09/11/25 15:14 Assessment & Plan Assessment & Plan (1) Urinary frequency without dysuria: Code(s): R35.0 - Frequency of micturition Plan Most likely UTI UA was negative in the office Plan - A urine specimen will be sent for culture. - The patient will start a 5-day course of antibiotics empirically pending cult ure results. - She was instructed to discontinue her famotidine while taking the antibiotics. - If the urine culture is negative, the patient will be advised to stop the antibiotic treatment. - For symptomatic relief, she was advised she could use Tylenol or [id number]-[id number] Azo. - The patient was counseled to increase fluid intake, including water and cranberry juice, and that she may also take cranberry pills. - The clinic will call the patient with the results, which are expected by the next day. - The patient will follow up with her primary care doctor on , who will also have access to the test results through the system. Orders: Orders AMB Urinalysis Automated Today Z13.9 - Encounter for screening, unspecified Urine Culture Today N39.0 - Urinary tract infection, site not specified Medications: New cefuroxime axetil 500 mg PO Q12H 10 tabs 0RF Coding Level of Care Code Est Pt Level 3 (44299) Diagnoses Urinary frequency without dysuria R35.0
== END 2025-09-11 15:18 | disposition home or self-care (01) ==
PROVIDERS: PCP Internal Medicine; Visit Provider Physician Assistant Medical
DX: Z13.9 Encounter for screening, unspecified (principal); R35.0 Frequency of micturition